=== PATIENT | male | born 1960 | race Two or more races ===

== ENCOUNTER 2019-11-12 10:17 | Inpatient (IN) | payer MEDICAID, OTHER ==
[2019-11-12] VITALS (18 sets, daily range): BP systolic 62–161; BP diastolic 22–93
[~2019-11-12] VITALS: Ht 165.1 cm; Wt 70.8 kg
--- NOTE | 2019-11-12 10:25 | NUR ---
lis60, from street, fever 101.1, BS 68. On room air, breathing evenly and unlabored. connected to the monitor and pulse ox. kept comfortable, will continue to monitor accordingly.
[2019-11-12] MEDS ORDERED: ACETAMINOPHEN ES 500 MG TABLET PO ONE (10:30)
[2019-11-12] MEDS ORDERED: VANCOMYCIN 1 GM in IV D5W 250 ML IV ONE (10:30)
[2019-11-12] MEDS ORDERED: PIPERACILLIN /TAZOBACTAM 3.375 G in IV D5W 50 ML IV ONE (10:30)
[2019-11-12] MEDS ORDERED: IV NS 0.9% 1,000 ML BAG IV ONE (10:30)
[2019-11-12 10:51] LABS: BASOPHILS % (AUTO) 0.5 % (0.0-2.0); HEMATOCRIT 35 % (39-51); HEMOGLOBIN 11.2 g/dL (13.5-17.5); LYMPHOCYTES # (AUTO) 0.2 /CMM (0.8-4.8); LYMPHOCYTES % (AUTO) 2.6 % (20.0-44.0); MEAN CORPUSCULAR HGB CONC 32 g/dl (31.0-36.0); MEAN CORPUSCULAR VOLUME 97 fL (80-96); MONOCYTES # (AUTO) 0.1 /CMM (0.1-1.30); MONOCYTES % (AUTO) 1.5 % (2.0-12.0); NEUTROPHILS # (AUTO) 8.5 /CMM (1.8-8.9); NEUTROPHILS % (AUTO) 94.4 % (43.0-81.0); PLATELET COUNT (AUTO) 147 /CMM (150-450); RED BLOOD CELL COUNT(AUTO) 3.66 MIL/uL (4.5-6.0)
--- NOTE | 2019-11-12 10:52 | NUR ---
MOVE SHEET TURNED IN.
--- NOTE | 2019-11-12 10:55 | NUR ---
MED RECON UNABLE TO UPDATE HOME MEDICATION INFORMATION AT THIS TIME. PATIENT UNABLE TO PROVIDE INFORMATION. [facility] ([phone]) IS CLOSED DURING .
[2019-11-12] MEDS ORDERED: ACETAMINOPHEN ES 500 MG TABLET ONE (10:56)
[2019-11-12 11:03] LABS: CALCIUM, SERUM 7.7 mg/dL (8.5-10.1); CARBON DIOXIDE 25 mmol/L (21-32); CHLORIDE 103 mmol/L (98-107); CREATININE 7.2 mg/dL (0.6-1.3); GLUCOSE 86 mg/dL (74-106); POTASSIUM 5.4 mmol/L (3.5-5.1); SODIUM SERUM 139 mmol/L (136-145); UREA NITROGEN, BLOOD 18 mg/dL (7-18)
--- NOTE | 2019-11-12 11:08 | NUR ---
Patient not producing urine anymore per patient, MD notified and aware.
--- NOTE | 2019-11-12 11:09 | NUR ---
IV initiated and blood drawned. covid 19 swab collected and sent to lab
[2019-11-12 11:10] LABS: ALANINE AMINOTRANSFERASE 7 U/L (12-78); ALBUMIN 2.7 g/dL (3.4-5.0); ALKALINE PHOSPHATASE 103 U/L (46-116); ASPARTATE AMINOTRANSFERASE 33 U/L (15-37); BILIRUBIN,DIRECT 0.2 mg/dL (0.0-0.2); BILIRUBIN,TOTAL 0.8 mg/dL (0.2-1.0); TOTAL PROTEIN, SERUM 8.9 g/dL (6.4-8.2)
--- NOTE | 2019-11-12 11:20 | NUR ---
called [facility] for panel admission
--- NOTE | 2019-11-12 11:37 | NUR ---
room 201
--- NOTE | 2019-11-12 12:00 | NUR ---
report given to Hector GILLESPIE for jaclyn
--- NOTE | 2019-11-12 12:20 | NUR ---
SOFTWARE CLIENT ARCHITECT NOTES RECEIVED PATIENT VIA GURNEY FROM ER. ALERT AND ORIENTED X4. ON O2 TO KEEP SPO2 > 94%. ORIENTED PATIENT TO ROOM, UNIT AND CALL LIGHT. RIGHT UPPER ARM AV SHUNT WITH + BRUIT/THRILL. LEFT UPPER CHEST PACEMAKER NOTED. ON TELE MONITORING SR:77. NOTED BLE EDEMA +2, ELEVATED BLE WITH PILLOWS. PATIENT AMBULATED TO THE BATHROOM AND NOTED WITH UNSTEADY GAIT, ASSISTANCE RENDERED. BED SIDE COMMODE PROVIDED. LEFT AC # 18 SL AND LEFT HAND # 20 SL INTACT AND PATENT. BED IN LOWEST POSITION, LOCKED. BED ALARM ON. CALL LIGHT WITHIN REACH. PATIENT DENIES ANY C/O PAIN NOR DISCOMFORT AT THIS TIME. RESTING COMFORTABLY IN BED. FREQUENT VISUAL CHECK DONE. ABLE TO VERBALIZE NEEDS.
[2019-11-12] MEDS ORDERED: ACETAMINOPHEN 325 MG TABLET PO PRN (12:30)
[2019-11-12] MEDS ORDERED: MAG HYDROX/AL HYDROX/SIMETH 30 ML UDC PO PRN (12:30)
[2019-11-12] MEDS ORDERED: MAGNESIUM HYDROXIDE 30 ML UDC PO PRN (12:30)
[2019-11-12] MEDS ORDERED: SODIUM POLYSTYRENE SULFONATE 15 G/60 ML BOTTLE PO ONE (12:30)
[2019-11-12] MEDS: HYDROCODONE/APAP 5/325MG TABLET PO PRN (13:18)
--- NOTE | 2019-11-12 18:21 | NUR ---
DINING ROOM TABLES SET UP ATTENDANT NOTES NOTED PATIENT BP 90/57. CHECKED IT MULTIPLE TIMES AND MANUALLY SBP STAYS IN 90'S, INFORMED DR. RANDOLPH WITH N.O. FOR NS 500CC BOLUS X1. CARRIED OUT.
[2019-11-12] MEDS ORDERED: IV NS 0.9% 500 ML IV ONE (18:30)
--- NOTE | 2019-11-12 19:15 | NUR ---
PROPERTY MANAGEMENT COORDINATOR NOTES PATIENT BP STILL TRENDING DOWN, CURRENT BP 77/47 DESPITE OF NS BOLUS ADMINISTRATION. PATIENT SLEEPING BUT AROUSABLE AND ABLE TO ANSWER QUESTIONS. DENIES ANY C/O LIGHTHEADEDNESS, N&V, PAIN OR ANY DISCOMFORT. RELAYED TO DR. RANDOLPH WITH ORDER FOR TRANSFER TO ICU AND LEVOPHED TO KEEP MAP >65.
--- NOTE | 2019-11-12 19:15 | NUR ---
CHIEF COUNSEL NOTES REPORT GIVEN TO FAVIAN GILLESPIE ICU.
--- NOTE | 2019-11-12 19:20 | NUR ---
ANDROID SOFTWARE ENGINEER NOTES PATIENT TRANSFERRED TO ICU ROOM 252 VIA ACLS PROTOCOL.
--- NOTE | 2019-11-12 19:45 | NUR ---
CONSULTING SERVICES ASSOCIATE RCD PT FROM [facility] FOR HYPOTENSION DAVIE 62/43; WAITING FOR ORDERS FOR PRESSORS FROM RECEIVING NURSE. PT IS A/O x4 PER PT HE IS SLEEPY BECAUSE HE HAS NOT BEEN ABLE TO SLEEP THE PAST FEW DAYS. PT WITH MARINA AV SHUNT AND HL TO LAC. ORDER RCD FOR PICC LINE D/T PRESSOR. PER OKAY TO USE WRIST FOR BP.
[2019-11-12] MEDS ORDERED: NOREPINEPHRINE 8MG/250ML RTU 250 ML IV ONE (19:48)
--- NOTE | 2019-11-12 20:00 | NUR ---
PAINT LINE OPERATOR PT DECLINES MEPILEX OR WOUND TREATMENTS HE STATES HE GETS VERY ITCHY. CONTINUE TO ENCOURAGE TURN AND REPOSITION.
[2019-11-12] MEDS: NOREPINEPHRINE 8 MG in IV NS 0.9% 242 ML IV PRN (20:21)
[2019-11-12] MEDS: PIPERACILLIN /TAZOBACTAM 2.25 G in IV D5W 50 ML IV SCH (21:20)
[2019-11-12] MEDS: IV NS 0.9% 250 ML IV PRN (21:20)
--- NOTE | 2019-11-12 23:00 | NUR ---
ACID SUPERVISOR PT W/MULTIPLE GREEN MUCOID BM; PER CHART PT RCD KAYEXELATE FOR ELEVATED BP. CONTINUE TO MONITOR.
[2019-11-13] VITALS (95 sets, daily range): BP systolic 42–160; BP diastolic 23–117
[2019-11-13] MEDS: NOREPINEPHRINE 8 MG in IV NS 0.9% 242 ML IV PRN ×2 (02:15→14:19)
[2019-11-13] MEDS: PIPERACILLIN /TAZOBACTAM 2.25 G in IV D5W 50 ML IV SCH ×3 (04:55→20:15)
[2019-11-13 05:07] LABS: BASOPHILS # (AUTO) 0.2 /CMM (0.0-0.2); BASOPHILS % (AUTO) 0.7 % (0.0-2.0); EOSINOPHILS % (AUTO) 0.3 % (0.0-6.0); HEMATOCRIT 36 % (39-51); HEMOGLOBIN 11.2 g/dL (13.5-17.5); LYMPHOCYTES # (AUTO) 0.7 /CMM (0.8-4.8); MEAN CORPUSCULAR HGB CONC 31 g/dl (31.0-36.0); MEAN CORPUSCULAR VOLUME 96 fL (80-96); MONOCYTES # (AUTO) 0.7 /CMM (0.1-1.30); NEUTROPHILS # (AUTO) 21.4 /CMM (1.8-8.9); PLATELET COUNT (AUTO) 115 /CMM (150-450)
--- NOTE | 2019-11-13 05:18 | NUR ---
FLOTATION TENDER HELPER PT NOTED TO BE RESTLESS DURING SHIFT PT C/O GENERALIZED ITCH.
[2019-11-13 05:24] LABS: CALCIUM, SERUM 7.2 mg/dL (8.5-10.1); MAGNESIUM 2.3 mg/dL (1.8-2.4); POTASSIUM 3.8 mmol/L (3.5-5.1)
[2019-11-13 05:42] LABS: CREATININE 7.5 mg/dL (0.6-1.3)
[2019-11-13] MEDS ORDERED: GABA-532 PO (07:20)
[2019-11-13] MEDS ORDERED: METO25TA3 PO (07:20)
[2019-11-13] MEDS ORDERED: ATOR40TA PO (07:20)
[2019-11-13] MEDS ORDERED: OMEP20CA15 PO (07:20)
[2019-11-13] MEDS ORDERED: SEVE800T7 PO (07:20)
[2019-11-13] MEDS ORDERED: MIDO5TAB4 PO (07:20)
[2019-11-13] MEDS ORDERED: DIPH1TAB PO (07:20)
[2019-11-13] MEDS ORDERED: ASPI-1420 PO (07:20)
[2019-11-13] MEDS ORDERED: DIPH25TA22 PO (07:20)
[2019-11-13] MEDS ORDERED: AMIO200T4 PO (07:20)
--- NOTE | 2019-11-13 07:30 | NUR ---
INVENTORY CONTROL ASSOCIATE NOTES RECEIVED PATIENT IN BED, ALERT AND ORIENTED X4. ON O2 TO KEEP SPO2 > 94%. NOT IN ANY DISTRESS, RIGHT UPPER ARM AV SHUNT WITH + BRUIT/THRILL. LEFT UPPER CHEST PACEMAKER NOTED. ON TELE MONITORING SR:64. NOTED BLE EDEMA +2, ELEVATED BLE WITH PILLOWS. BED REST FOR NOW. USES BED SIDE COMMODE PROVIDED. LEFT UPPER ARM PICC LINE AND LEFT HAND # 20 SL INTACT AND PATENT. ONGOING LEVOPHED DRIP AT 0.02 MCG.SEE NURSING FLOWSHEET FOR SKIN ISSUES. BED IN LOWEST POSITION, LOCKED. BED ALARM ON. CALL LIGHT WITHIN REACH. PATIENT DENIES ANY C/O PAIN NOR DISCOMFORT AT THIS TIME. WILL MONITOR
--- NOTE | 2019-11-13 09:30 | NUR ---
RN NOTES DUE MEDS GIVEN
[2019-11-13 09:52] LABS: IRON, SERUM 12 ug/dl (50-175); TOTAL IRON BINDING CAPACITY 114 ug/dl (250-450)
[2019-11-13] MEDS ORDERED: DIPHENOXYLATE HCL/ATROP SULF 1 UDTAB TABLET PO PRN (10:00)
[2019-11-13 10:38] LABS: FERRITIN 937 ng/mL (8-388); HDL CHOLESTEROL 35 mg/dL (40-60); LDL 5 mg/dL (0-99); THYROID STIMULATING HORMONE 6.191 uIU/mL (0.358-3.74); TRIGLYCERIDES 51 mg/dL (30-150)
[2019-11-13] MEDS: SEVELAMER CARBONATE 800 MG TABLET PO SCH ×2 (13:25→17:37)
[2019-11-13 13:32] LABS: CHOLESTEROL < 50 mg/dL (<200)
[2019-11-13] MEDS: VANCOMYCIN 500 MG in IV D5W 100 ML IV PRN (16:33)
[2019-11-13] MEDS: IV NS 0.9% 250 ML IV PRN (16:34)
[2019-11-13] MEDS: GABAPENTIN 100 MG CAPSULE PO SCH (17:37)
--- NOTE | 2019-11-13 18:53 | NUR ---
TROLLEY WORKER NOTES PATIENT RESTING IN BED, ALERT AND ORIENTED X4. ON O2 TO KEEP SPO2 > 94%. NOT IN ANY DISTRESS, RIGHT UPPER ARM AV SHUNT WITH + BRUIT/THRILL. LEFT UPPER CHEST PACEMAKER NOTED. ON TELE MONITORING SR:70s. NOTED BLE EDEMA +2, ELEVATED BLE WITH PILLOWS. LEFT UPPER ARM PICC LINE AND LEFT HAND # 20 SL INTACT AND PATENT. ONGOING LEVOPHED DRIP AT 0.08 MCG. BED IN LOWEST POSITION, LOCKED. BED ALARM ON. CALL LIGHT WITHIN REACH. PATIENT DENIES ANY C/O PAIN NOR DISCOMFORT AT THIS TIME. HD DONE EARLIER, CLEANSING ONLY. PM CARE DONE. ALL NEEDS MET. CONTINUES TO REFUSE WOUND ASSESSMENT AND TREATMENTS. NO OTHER SIGNIFICANT CHANGE NOTED. WILL ENDORSE TO NEXT SHIFT.
--- NOTE | 2019-11-13 19:30 | NUR ---
GAS SYSTEM OPERATOR RCD PT W/DX HYPOTENSION; PT IS A/O x4. NSR ON MONITOR W/OCC A PACING. ON O2 2L NC. PT C/O ABD DISCOMFORT THROUGH OUT DAY; DECLINED NEED FOR ANY MEDICINE AT THIS TIME. PT HAD BM AT THIS TIME; GREEN MUCOID. LEVOPHED AT 0.1 MCG/KG/MIN TO MAINTAIN SBP >90. ZORA PICC LINE LEAKING AND BLEEDING NOTED AT THIS TIME. MULTIPLE SKIN ISSUES HOWEVER PT DECLINES WOUND TREATMENT. CONT TO MONITOR.
--- NOTE | 2019-11-13 20:29 | NUR ---
Met with patient,he is awake and alert. States he lives locally with a friend/roommate in a single level home. He is ambulatory and independent with adl's and driving. Has no DME or homehealth reported.He receives hemodialysis every MWF @ 7am at [facility] [phone]/ [phone]. Current dc plan is to return home. Addendum: 11/13/19 at 2030 by JLUIS LEWIS RN Amended: Links added.
--- NOTE | 2019-11-13 20:30 | NUR ---
Met with patient,he is awake and alert. States he lives locally with a friend/roommate in a single level home. He is ambulatory and independent with adl's and driving. Has no DME or homehealth reported.He receives hemodialysis every MWF @ 7am at [facility] [phone]/ [phone]. Pcp is at [facility]. Current dc plan is to return home. Addendum: 11/13/19 at 2030 by JLUIS LEWIS RN Amended: Links added.
[2019-11-13] MEDS ORDERED: ATORVASTATIN 40 MG TABLET PO SCH (22:00)
--- NOTE | 2019-11-13 22:00 | NUR ---
DESK SERGEANT PT C/O STOMACH DISCOMFORT. WILL ADMINISTER MAALOX.
[2019-11-13] MEDS: ONDANSETRON HCL/PF 4 MG/2 ML VIAL IVP PRN (22:19)
--- NOTE | 2019-11-13 22:20 | NUR ---
DEEP FAT FRY COOK UNABLE TO GIVE PT PO MEDS. PT W/ONE EPISODE OF EMESIS. ADMINISTERED ZOFRAN AT THIS TIME. CONTINUE TO MONITOR.
[2019-11-14] VITALS (89 sets, daily range): BP systolic 30–145; BP diastolic 14–108
[2019-11-14 04:55] LABS: BASOPHILS # (AUTO) 0.1 /CMM (0.0-0.2); BASOPHILS % (AUTO) 0.5 % (0.0-2.0); EOSINOPHILS % (AUTO) 0.9 % (0.0-6.0); HEMATOCRIT 35 % (39-51); HEMOGLOBIN 10.9 g/dL (13.5-17.5); LYMPHOCYTES # (AUTO) 0.6 /CMM (0.8-4.8); LYMPHOCYTES % (AUTO) 3.1 % (20.0-44.0); MEAN CORPUSCULAR HGB CONC 31 g/dl (31.0-36.0); MEAN CORPUSCULAR VOLUME 94 fL (80-96); MONOCYTES # (AUTO) 0.8 /CMM (0.1-1.30); MONOCYTES % (AUTO) 3.8 % (2.0-12.0); NEUTROPHILS # (AUTO) 18.2 /CMM (1.8-8.9); NEUTROPHILS % (AUTO) 91.7 % (43.0-81.0); PLATELET COUNT (AUTO) 117 /CMM (150-450); RED BLOOD CELL COUNT(AUTO) 3.74 MIL/uL (4.5-6.0); WHITE BLOOD COUNT (AUTO) 19.8 K/uL (4.3-11.0)
[2019-11-14] MEDS: PIPERACILLIN /TAZOBACTAM 2.25 G in IV D5W 50 ML IV SCH ×3 (05:00→20:38)
--- NOTE | 2019-11-14 05:00 | NUR ---
CERTIFIED NURSE PRACTITIONER PT CONTINUES TO HAVE MULTIPLE GREEN MUCOID BM. CONTINUE TO MONITOR.
[2019-11-14 05:26] LABS: ALBUMIN 2.1 g/dL (3.4-5.0); CALCIUM, SERUM 8.1 mg/dL (8.5-10.1); CREATININE 6.2 mg/dL (0.6-1.3); MAGNESIUM 2.3 mg/dL (1.8-2.4); PHOSPHORUS 4.5 mg/dL (2.5-4.9); POTASSIUM 3.8 mmol/L (3.5-5.1); TOTAL PROTEIN, SERUM 7.6 g/dL (6.4-8.2)
--- NOTE | 2019-11-14 06:44 | NUR ---
TRASH MAN BLOOD GLUCOSE 31 RECHECKED 49; ORANGE JUICE GIVEN. WILL RECHECK. JOINERY FACTORY WORKER NOTIFIED.
[2019-11-14] MEDS ORDERED: OMEPRAZOLE 20 MG CAPSULE.DR PO SCH (07:30)
--- NOTE | 2019-11-14 07:50 | NUR ---
ICU/RN PT IS IN THE BED AWAKE,ALERT ORIENTED. ON 2 L N/C .SAT O2-97%.ON LEVOPHED DRIP.LEFT UPPER ARM PICC LINE.ANURIC ON HD.RIGHT UPPER ARM FISTULA.MULTIPLY SKIN SCABS NOTED ALL OVER THE BODY.AFEBRILE.NO PAIN REPORTED AT THIS TIME.LABS REVIEW.
[2019-11-14] MEDS: PANTOPRAZOLE 40 MG TABLET.DR PO SCH (08:18)
[2019-11-14] MEDS: ASPIRIN EC 81 MG TABLET.DR PO SCH (08:18)
[2019-11-14] MEDS: SEVELAMER CARBONATE 800 MG TABLET PO SCH ×3 (08:19→17:12)
[2019-11-14] MEDS: GABAPENTIN 100 MG CAPSULE PO SCH ×2 (08:19→17:04)
[2019-11-14] MEDS: AMIODARONE HCL 200 MG TABLET PO SCH (08:19)
[2019-11-14] MEDS: Z GUARD REMEDY 2 OZ OINT TP PRN (08:24)
--- NOTE | 2019-11-14 08:24 | NUR ---
WOUND CARE CONSULT: PT PRESENTS WITH MULTIPLE SKIN ISSUES INCLUDING SKIN CONDITION TO UPPER BODY WITH DISCOLORATION AND SCABS, SACRAL STAGE 3 ULCER, DRY ESCHAR TO RT HAND AND DRY ULCERS WITH CALLUS TO BILATERAL PLANTAR FEET, ALL PRESENT ON ADMISSION. RN TO DISCUSS SKIN CONDITION OF UPPER BODY WITH MD TODAY. RECOMMEND SURGICAL CONSULT FOR RT HAND AND SACRAL WOUNDS. DR FELIBERTO ABBASI NOTIFIED OF CONSULT REQUEST. DR CASTILLO NOTIFIED OF DPM CONSULT REQUEST FOR FOOT WOUNDS. RECOMMENDATIONS MADE FOR WOUND CARE AND SKIN PROTECTION. DISCUSSED WITH NURSING STAFF. DEFER TO SURGICAL TEAM FOR RT HAND ESCHAR WOUND TREATMENT. DEFER TO DPM FOR FOOT WOUNDS. MD IN AGREEMENT WITH PLAN OF CARE. PT IS ON [place]WTON ISOFLEX LOW AIRLOSS BED. PT INCONTINENT OF STOOL. Addendum: 11/14/19 at 0828 by HUMAIRA ISAAC WNDNU Amended: Links added.
[2019-11-14] MEDS ORDERED: HYDROGEL DRESSING 90 GM TUBE TP PRN (08:30)
--- NOTE | 2019-11-14 09:00 | NUR ---
ICU/RN DUE MEDS ARE GIVEN ORDERED.
--- NOTE | 2019-11-14 11:00 | NUR ---
ICU/RN DR GREGORY SEEN THE PT .RIGHT LUNG THORACENTESIS ORDERED. AND DONE.PT TOLERATED PROCEDURE WELL.NO S/S OF BLEEDING NOTED.310 ML OUTPUT SEND TO THE LAB.
[2019-11-14] MEDS: HYDROGEL DRESSING 90 GM TUBE TP SCH (11:38)
[2019-11-14] MEDS: HYDROCODONE/APAP 5/325MG TABLET PO PRN ×2 (11:41→23:02)
[2019-11-14] MEDS: IV NS 0.9% 250 ML IV PRN (17:03)
[2019-11-14] MEDS: NOREPINEPHRINE 8 MG in IV NS 0.9% 242 ML IV PRN (17:04)
[2019-11-14] MEDS ORDERED: AZTREONAM 2 G in IV NS 0.9% 100 ML IV SCH (17:30)
[2019-11-14] MEDS ORDERED: AZTREONAM 2 G in IV NS 0.9% 100 ML IV ONE (18:28)
[2019-11-14] MEDS ORDERED: DEXTROSE 50%-WATER 50 ML DISP.SYRIN IV PRN (19:00)
--- NOTE | 2019-11-14 19:10 | NUR ---
RN OPENING NOTES RECEIVED PT ON BED AWAKE A/0 X4 ON O2 2L SPO2 98% NO SIGN AND SYMPTOMS OF RESPIRATORY DISTRESS, BEDSIDE MONITOR READS SINUS RHYTHM A PACING, ON LEVOPHED 0.05 MCG/KG/MIN VIA ZORA PICC LINE INFUSING WELL, PT IS S/P THORACENTESIS ON RIGHT CHEST WITH OUTPUT OF 310 ML/ SITE IS CLEAN AND NO BLEEDING NOTED, SAFETY MEASURE MAINTAINED BED ON LOWEST POSITION AND LOCKED CALL LIGHT WITHIN REACH WILL CONT TO MONITOR
--- NOTE | 2019-11-14 21:30 | NUR ---
RN NOTES AZTREONAM 2GM WAS GIVEN LATE BECAUSE ORDER WAS ONLY MADE @ 3750
[2019-11-14] MEDS: BLOOD SUGAR DIAGNOSTIC 1 EACH STRIP IN SCH (21:33)
[2019-11-14] MEDS: INSULIN REGULAR, HUMAN 100 UNIT/ML 3 ML VIAL SQ PRN (21:34)
[2019-11-15] VITALS (91 sets, daily range): BP systolic 78–135; BP diastolic 19–74
[2019-11-15] MEDS: PIPERACILLIN /TAZOBACTAM 2.25 G in IV D5W 50 ML IV SCH ×3 (04:31→21:44)
[2019-11-15] MEDS: Z GUARD REMEDY 2 OZ OINT TP PRN (04:32)
[2019-11-15 04:46] LABS: BASOPHILS # (AUTO) 0.1 /CMM (0.0-0.2); BASOPHILS % (AUTO) 0.4 % (0.0-2.0); EOSINOPHILS % (AUTO) 2.7 % (0.0-6.0); HEMATOCRIT 34 % (39-51); HEMOGLOBIN 10.5 g/dL (13.5-17.5); LYMPHOCYTES # (AUTO) 0.6 /CMM (0.8-4.8); LYMPHOCYTES % (AUTO) 4.5 % (20.0-44.0); MEAN CORPUSCULAR HGB CONC 31 g/dl (31.0-36.0); MEAN CORPUSCULAR VOLUME 94 fL (80-96); MONOCYTES # (AUTO) 0.5 /CMM (0.1-1.30); MONOCYTES % (AUTO) 3.3 % (2.0-12.0); NEUTROPHILS # (AUTO) 12.8 /CMM (1.8-8.9); NEUTROPHILS % (AUTO) 89.1 % (43.0-81.0); PLATELET COUNT (AUTO) 108 /CMM (150-450); RED BLOOD CELL COUNT(AUTO) 3.58 MIL/uL (4.5-6.0); WHITE BLOOD COUNT (AUTO) 14.3 K/uL (4.3-11.0)
[2019-11-15 05:36] LABS: CALCIUM, SERUM 7.7 mg/dL (8.5-10.1); CREATININE 6.9 mg/dL (0.6-1.3)
--- NOTE | 2019-11-15 06:52 | NUR ---
RN CLOSING NOTES PT ON BED ASLEEP ON O2 VIA NC @ 2L TOLERATING WELL WITH SPO2 98%, BEDSIDE MONITOR READS SINUS RHYTHM 70S WITH A PACING, NO SIGNIFICANT CHANGES ON CONDITION NOTED, STILL ON LEVOPHED 0.05 MCG/KG/MIN INFUSING WELL VIA ZORA PICC, ALL NEEDS ATTENDED WOUND TREATMENT DONE ORDERED, SAFETY MEASURE MAINTAIN, BED ON LOWEST POSITION AND LOCKED CALL LIGHT WITHIN REACH WILL ENDORSED TO AM SHIFT NURSE
--- NOTE | 2019-11-15 07:20 | NUR ---
RN INITIAL NOTES RECEIVED PT AWAKE, A/OX4. ON 02 VIA NC AT 2LPM. NO RESPIRATORY DISTRESS NOTED. NO SOB NOTED. DENIES ANY PAIN. ZORA PICC IN PLACE. ON LEVO AT 0.05MCG/KG/MIN. WILL TITRATE ACCORDINGLY. MARINA AV FISTULA NOTED. BRUIT AND THRILL PRESENT. PT COMFORTABLE. CALL LIGHT WITHIN REACH. WILL MONITOR.
[2019-11-15 08:10] LABS: PTH, INTACT 177 pg/mL (15-65)
[2019-11-15] MEDS: AMIODARONE HCL 200 MG TABLET PO SCH (08:12)
[2019-11-15] MEDS: SEVELAMER CARBONATE 800 MG TABLET PO SCH ×3 (08:12→21:45)
[2019-11-15] MEDS: PANTOPRAZOLE 40 MG TABLET.DR PO SCH (08:12)
[2019-11-15] MEDS: HYDROCORTISONE SOD SUCCINATE 100 MG/2 ML VIAL IV SCH ×3 (08:12→21:45)
[2019-11-15] MEDS: BLOOD SUGAR DIAGNOSTIC 1 EACH STRIP IN SCH ×4 (08:13→22:02)
[2019-11-15] MEDS: HYDROGEL DRESSING 90 GM TUBE TP SCH (08:13)
[2019-11-15] MEDS: ASPIRIN EC 81 MG TABLET.DR PO SCH (08:13)
[2019-11-15] MEDS: GABAPENTIN 100 MG CAPSULE PO SCH ×2 (08:13→21:45)
[2019-11-15] MEDS: AZTREONAM IV SCH ×2 (09:39→21:44)
[2019-11-15] MEDS: NS 0.9% IV SCH ×2 (09:39→21:44)
[2019-11-15] MEDS: APIXABAN 2.5 MG TABLET PO SCH ×2 (10:42→21:50)
[2019-11-15] MEDS ORDERED: MINERAL OIL/PETROLATUM,WHITE 120 GM JAR TP PRN (11:00)
[2019-11-15 11:11] LABS: *SPE A/G RATIO 0.6 (0.7-1.7); *SPE ALBUMIN 2.7 g/dL (2.9-4.4); *SPE ALPHA-1-GLOBULIN 0.3 g/dL (0.0-0.4); *SPE ALPHA-2-GLOBULIN 0.5 g/dL (0.4-1.0); *SPE BETA GLOBULIN 0.7 g/dL (0.7-1.3); *SPE GLOBULIN, TOTAL 4.3 g/dL (2.2-3.9); *SPE M-SPIKE Not Observed g/dL (Not Observed); *SPEGAMMA GLOBULIN 2.8 g/dL (0.4-1.8)
[2019-11-15] MEDS: INSULIN REGULAR, HUMAN 100 UNIT/ML 3 ML VIAL SQ PRN (11:51)
--- NOTE | 2019-11-15 13:00 | NUR ---
RN NOTES SEEN BY KOMAL RASCON NP. AWARE OF PT'S CURRENT STATUS, LAB VALUES AND IMAGING RESULT. SCALE MODEL MAKER SPOKE WITH DR DE LA TORRE (RADIOLOGIST) REGARDING CT CHEST RESULT. NO ORDER MADE. PT FOR VASCULAR CONSULT WITH DR GAMBINO. WILL CLOSELY MONITOR
[2019-11-15] MEDS: ENSURE ENLIVE CHOC 237 ML CAN PO SCH (17:00)
[2019-11-15] MEDS: NOREPINEPHRINE 8 MG in IV NS 0.9% 242 ML IV PRN (17:40)
--- NOTE | 2019-11-15 18:00 | NUR ---
RN NOTES MEDICATIONS DUE AT 1700 AND 1800 UNABLE TO GIVE. DIALYSIS ONGOING.
--- NOTE | 2019-11-15 18:36 | NUR ---
RN CLOSING NOTES PT REMAINS STABLE. NO RESPIRATORY DISTRESS NOTED. DENIES ANY PAIN. ON LEVO AT 0.01MCG/KG/MIN. DIALYSIS ONGOING. TX PROVIDED ORDERED. KEPT CLEAN AND DRY. ASSISTED ON REPOSITIONING . WILL ENDORSE FOR CONTINUITY OF CARE
--- NOTE | 2019-11-15 20:00 | NUR ---
SOFTWARE PACKAGER. INITIAL ASSESSMENT. RECEIVED THE PT REST ON THE BED. AWAKE, ALERT, FOLLOW COMMANDS. LETHARGIC. HD GOING ON. DENTAL SECRETARY SHOWING A PACING. PT IS ROOM AIR. SAT 94%. N O ACUTE DISTRESS NOTED. IV LT UPPER ARM PICC LINE. LEVOPHED. 0.01 MCG/KG/MIN,. HOB ELEVATED. RT UPPER ARM AV FISTULA. BRUIT AND THRILL PRESENT. WILL CONTINUE TO MONITOR.
--- NOTE | 2019-11-15 20:14 | NUR ---
agricultural scientist. hd done. fluid not removed
--- NOTE | 2019-11-15 21:27 | NUR ---
agriculture professor. s/p hd vancomycin given. hd done. no fluids removed, spoke with pharmacy. ordered give the dose
[2019-11-15] MEDS: VANCOMYCIN 500 MG in IV D5W 100 ML IV PRN (21:44)
[2019-11-15] MEDS: HYDROCODONE/APAP 5/325MG TABLET PO PRN (22:01)
--- NOTE | 2019-11-15 23:00 | NUR ---
BLADDER CLEANER. PT C/O RT UPPER ARM BELOW AV FISTULA SITE SWELLING. HAND ELEVATED. WILL CONTINUE TO MONITOR
[2019-11-16] VITALS (91 sets, daily range): BP systolic 68–123; BP diastolic 33–92
--- NOTE | 2019-11-16 01:00 | NUR ---
DRUG AND ALCOHOL COUNSELOR. PT C/O SOB. OXYGEN 2L VIA NASAL CANNULA STARTED. WILL CONTINUE TO MONITOR
--- NOTE | 2019-11-16 03:00 | NUR ---
MANAGER PHP. AFTER STARTED O2 NASAL CANNULA , NO COMPLAINT SHORT OF BREATH
[2019-11-16] MEDS: NOREPINEPHRINE 8 MG in IV NS 0.9% 242 ML IV PRN (05:07)
--- NOTE | 2019-11-16 05:16 | NUR ---
DOOR PANELER. AM CARE, ORAL CARE, BED BATH GIVEN. LINEN CHANGED. REMAINING SAME OXYGEN TOLEARTEDW ELL. SAT 98%. NO ACUTE DISTRESS NOTED. ADMINISTRATIVE INTERN SHOWING A PACING. AFEBRILE. WILL CONTINUE TO MONITOR VITALS.
[2019-11-16] MEDS: HYDROCORTISONE SOD SUCCINATE 100 MG/2 ML VIAL IV SCH ×3 (06:07→20:55)
[2019-11-16] MEDS: PIPERACILLIN /TAZOBACTAM 2.25 G in IV D5W 50 ML IV SCH ×2 (06:08→11:53)
--- NOTE | 2019-11-16 06:53 | NUR ---
agricultural engineering technologist. oxygen 2l via nasal cannula tolerated well. sat 98%. no acute distress noted hob elevated. afebrile . levophed 0.05 mcg/kg/min. will continue to monitor vitals
[2019-11-16] MEDS: APIXABAN 2.5 MG TABLET PO SCH ×2 (08:36→17:06)
[2019-11-16] MEDS: INSULIN REGULAR, HUMAN 100 UNIT/ML 3 ML VIAL SQ PRN ×4 (08:38→22:06)
[2019-11-16] MEDS: PANTOPRAZOLE 40 MG TABLET.DR PO SCH (08:39)
[2019-11-16] MEDS: SEVELAMER CARBONATE 800 MG TABLET PO SCH ×3 (08:39→17:02)
[2019-11-16] MEDS: ASPIRIN EC 81 MG TABLET.DR PO SCH (08:39)
[2019-11-16] MEDS: BLOOD SUGAR DIAGNOSTIC 1 EACH STRIP IN SCH ×4 (08:39→22:02)
[2019-11-16] MEDS: GABAPENTIN 100 MG CAPSULE PO SCH ×2 (08:39→17:02)
[2019-11-16] MEDS: AMIODARONE HCL 200 MG TABLET PO SCH (08:39)
[2019-11-16] MEDS: HYDROGEL DRESSING 90 GM TUBE TP SCH (08:41)
[2019-11-16] MEDS: ENSURE ENLIVE CHOC 237 ML CAN PO SCH (08:41)
[2019-11-16] MEDS: NS 0.9% IV SCH (09:27)
[2019-11-16] MEDS: AZTREONAM IV SCH (09:27)
[2019-11-16] MEDS: SILVER SULFADIAZINE CREAM 25 GM TUBE TP SCH (11:29)
[2019-11-16] MEDS: NEPRO VAN 237 ML CAN PO PRN ×2 (11:54→17:13)
[2019-11-16] MEDS: MENTHOL/CETYLPYRD (CEPACOL) 1 LOZ LOZENGE PO PRN ×2 (14:11→17:02)
[2019-11-16] MEDS: CEFTRIAXONE 1 G in IV D5W 50 ML IV SCH (14:41)
[2019-11-16] MEDS: METRONIDAZOLE 500MG/ NS 100ML 500 MG in PREMIX 1 EA IV SCH ×2 (15:11→20:55)
--- NOTE | 2019-11-16 19:30 | NUR ---
END OF SHIFT NOTE: PT HAD AN UNEVENTFUL SHIFT. LEVOPHED GTT TITRATED DOWN TO 0.02 MCG/KG/MIN PER MD ORDERS. PT CHECKED ON HOURLY AND PRN BY NURSING STAFF.
--- NOTE | 2019-11-16 20:00 | NUR ---
Received patient awake alert and oriented x4.Respiration even and unlabored with O2 at 2L NC saturation 98%.Afebrile.A-paced.Patient on levophed gtt at 0.02 mcg for BP support and will titrate to keep MAP >65.Patient anuric on HD with MARINA AVF positive bruit and thrill.ZORA PICC LINE site intact. Denies pain or any discomfort at this time.
[2019-11-16] MEDS: HYDROCODONE/APAP 5/325MG TABLET PO PRN (22:10)
--- NOTE | 2019-11-16 23:00 | NUR ---
Patient medicated for pain to left foot.Verbalized relief.
[2019-11-17] VITALS (95 sets, daily range): BP systolic 65–139; BP diastolic 31–88
[2019-11-17] MEDS: IV NS 0.9% 250 ML IV PRN (03:30)
[2019-11-17] MEDS: NOREPINEPHRINE 8 MG in IV NS 0.9% 242 ML IV PRN (03:37)
[2019-11-17] MEDS: METRONIDAZOLE 500MG/ NS 100ML 500 MG in PREMIX 1 EA IV SCH ×3 (05:04→20:48)
[2019-11-17] MEDS: HYDROCORTISONE SOD SUCCINATE 100 MG/2 ML VIAL IV SCH ×3 (05:04→20:49)
--- NOTE | 2019-11-17 06:00 | NUR ---
Hygienic measures done.No significant change noted during the shift.All due medications administered. Patient for Right Chest Pigtain Addendum: 11/17/19 at 0637 by JLUIS SCHWARTZ RN Patient for Right Pigtail Drainage of Pleural Effusion with IR on Wednesday.Needs consent to be sign. And to hold Eliquis wednesday.NPO post MN wednesday.Will endorse to day shift for continuity of care.
--- NOTE | 2019-11-17 07:30 | NUR ---
ICU/RN PT IS RESTING IN THE BED .ON 2 L N/C SAT O2-96%.ON LEVOPHED DRIP.LEFT UPPER ARM PICC LINE. ANURIC ON HD . RIGHT UPPER ARM IV FISTULA.BILATERAL FEET WOUNDS COVERED WITH DRESSING.REDNESS ON LINDA AREA NOTED.AFEBRILE.NO PAIN REPORTED AT THIS TIME.
[2019-11-17] MEDS: BLOOD SUGAR DIAGNOSTIC 1 EACH STRIP IN SCH ×4 (08:10→21:48)
[2019-11-17] MEDS: ASPIRIN EC 81 MG TABLET.DR PO SCH (08:11)
[2019-11-17] MEDS: PANTOPRAZOLE 40 MG TABLET.DR PO SCH (08:11)
[2019-11-17] MEDS: SEVELAMER CARBONATE 800 MG TABLET PO SCH ×3 (08:11→17:27)
[2019-11-17] MEDS: GABAPENTIN 100 MG CAPSULE PO SCH ×2 (08:11→17:27)
[2019-11-17] MEDS: AMIODARONE HCL 200 MG TABLET PO SCH (08:11)
[2019-11-17] MEDS: SILVER SULFADIAZINE CREAM 25 GM TUBE TP SCH (08:12)
[2019-11-17] MEDS: APIXABAN 2.5 MG TABLET PO SCH ×2 (08:12→17:30)
[2019-11-17] MEDS: Z GUARD REMEDY 2 OZ OINT TP PRN (08:13)
[2019-11-17] MEDS: HYDROGEL DRESSING 90 GM TUBE TP SCH (08:13)
[2019-11-17] MEDS: INSULIN REGULAR, HUMAN 100 UNIT/ML 3 ML VIAL SQ PRN ×4 (08:50→21:47)
--- NOTE | 2019-11-17 09:00 | NUR ---
ICU/RN DUE MEDS ARE GIVEN ORDERED.AM CARE PROVIDED.PT EATS 100% FROM HIS MEAL TRAY.
[2019-11-17] MEDS: HYDROCODONE/APAP 5/325MG TABLET PO PRN (09:52)
--- NOTE | 2019-11-17 09:54 | NUR ---
ICU/RN PT C/O OF PAIN 7-09/17.NORCO 1 TAB PO GIVEN ORDERED.CONTINUE MONITORING.
[2019-11-17 11:35] LABS: BASOPHILS % (AUTO) 0.4 % (0.0-2.0); HEMATOCRIT 35 % (39-51); HEMOGLOBIN 10.9 g/dL (13.5-17.5); LYMPHOCYTES # (AUTO) 0.3 /CMM (0.8-4.8); LYMPHOCYTES % (AUTO) 3.1 % (20.0-44.0); MEAN CORPUSCULAR HGB CONC 31 g/dl (31.0-36.0); MEAN CORPUSCULAR VOLUME 95 fL (80-96); MONOCYTES # (AUTO) 0.2 /CMM (0.1-1.30); NEUTROPHILS # (AUTO) 10.4 /CMM (1.8-8.9); NEUTROPHILS % (AUTO) 94.5 % (43.0-81.0); PLATELET COUNT (AUTO) 142 /CMM (150-450); RED BLOOD CELL COUNT(AUTO) 3.66 MIL/uL (4.5-6.0)
[2019-11-17 11:55] LABS: CALCIUM, SERUM 8.1 mg/dL (8.5-10.1); CREATININE 6.5 mg/dL (0.6-1.3); POTASSIUM 4.4 mmol/L (3.5-5.1)
[2019-11-17] MEDS: CEFTRIAXONE 1 G in IV D5W 50 ML IV SCH (15:35)
--- NOTE | 2019-11-17 16:00 | NUR ---
ICU/RN HD IS OVER 1 L OUTPUT.PT TOLERATED PROCEDURE WELL.PM CARE PROVIDED.WOUND DRESSING DONE ORDERED.V/S STABLE,AFEBRILE. NO PAIN REPORTED.
--- NOTE | 2019-11-17 18:49 | NUR ---
ICU/RN PT IS STILL ON LEVOPHED DRIP.BS-187.COVERED WITH 3 UNITS OF REGULAR INSULIN. PT EATS 75% FROM HIS MEAL TRAY.NO PAIN REPORTED AT THIS TIME.CONTINUE MONITORING.
--- NOTE | 2019-11-17 19:30 | NUR ---
ICU/ORACLE SCM CONSULTANT RECEIVED REPORT FROM DAY NURSE. SEE FLOWSHEET FOR ASSESSMENT, ALONG WITH SKIN ISSUES WHICH ARE ADDRESSED AND THE INTERVENTIONS TO EACH. PT ALERT X4. PT IS ON 2 LITERS N/C TOLERATING THIS WELL WITH SATURATION AT 100%. PT ASST WITH TURNING AND REPOSITIONING SELF FOR COMFORT AND CARE. WILL CONTINUE TO MONITOR THIS PT, NO ACUTE DISTRESS SEEN.
--- NOTE | 2019-11-17 21:45 | NUR ---
ICU/BATH SOLUTION MAKER PT WAS GIVEN PARTIAL PM CARE. PT TOLERATED THIS WELL. PT REMAINS ON 2 LITERS N/C WITH SATURATION AT 100%. WILL CONTINUE TO MONITOR THIS PT. NO ACUTE DISTRESS SEEN AT THIS TIME. CALL LIGHT WITHIN REACH.
--- NOTE | 2019-11-17 22:30 | NUR ---
ICU/MAIL ORDER CLERK HS BLOOD SUGAR WAS DONE, WHICH WAS 175. THIS WAS COVERED WITH 3 UNITS REGULAR INSULIN. WILL CONTINUE TO MONITOR THIS PT'S SUGAR WAS ORDERED BY MD AND HOSPITAL PROTOCOL. CALL LIGHT WITHIN REACH.
[2019-11-18] VITALS (50 sets, daily range): BP systolic 76–122; BP diastolic 45–71
--- NOTE | 2019-11-18 01:30 | NUR ---
ICU/GLAZIER SUPERVISOR BLOOD PRESSURE IS STABLE AT 120'S, LEVO IS ON HOLD BY CHARGE NURSE. WILL CONTINUE MONITOR THIS PT'S BLOOD PRESSURE.
[2019-11-18] MEDS: HYDROCORTISONE SOD SUCCINATE 100 MG/2 ML VIAL IV SCH ×3 (05:09→21:04)
[2019-11-18] MEDS: METRONIDAZOLE 500MG/ NS 100ML 500 MG in PREMIX 1 EA IV SCH ×3 (05:09→21:04)
--- NOTE | 2019-11-18 05:15 | NUR ---
ICU/CHILD CARE NURSE PT WAS GIVEN PARTIAL PM CARE. PT TOLERATED THIS WELL. PT REMAINS ON 2 LITERS N/C WITH SATURATION AT 100%. WILL CONTINUE TO MONITOR THIS PT. NO ACUTE DISTRESS SEEN AT THIS TIME. CALL LIGHT WITHIN REACH.
[2019-11-18] MEDS: IV NS 0.9% 250 ML IV PRN (07:07)
--- NOTE | 2019-11-18 07:15 | NUR ---
ICU/MONTESSORI PRESCHOOL TEACHER PT REMAINS WITHOUT LEVO, BLOOD PRESSURE IS STABLE. REPORT GIVEN TO DAY NURSE.
[2019-11-18] MEDS: BLOOD SUGAR DIAGNOSTIC 1 EACH STRIP IN SCH ×4 (07:48→21:04)
[2019-11-18] MEDS: AMIODARONE HCL 200 MG TABLET PO SCH (08:12)
[2019-11-18] MEDS: PANTOPRAZOLE 40 MG TABLET.DR PO SCH (08:13)
[2019-11-18] MEDS: ASPIRIN EC 81 MG TABLET.DR PO SCH (08:13)
[2019-11-18] MEDS: HYDROGEL DRESSING 90 GM TUBE TP SCH (08:13)
[2019-11-18] MEDS: SEVELAMER CARBONATE 800 MG TABLET PO SCH ×3 (08:13→17:16)
[2019-11-18] MEDS: GABAPENTIN 100 MG CAPSULE PO SCH ×2 (08:13→16:48)
[2019-11-18] MEDS: SILVER SULFADIAZINE CREAM 25 GM TUBE TP SCH (08:14)
--- NOTE | 2019-11-18 09:00 | NUR ---
ICU/RN PT IS IN THE BED .ON 2L N/C ,SAT O2-98%.OFF LEVOPHED AT THIS TIME.V/S STABLE.AFEBRILE.NO PAIN REPORTED.DUE MEDS ARE GIVEN ORDERED.PT EATS 100% FROM HIS MEAL TRAY.LABS REVIEW.CONTINUE MONITORING.
[2019-11-18] MEDS: INSULIN REGULAR, HUMAN 100 UNIT/ML 3 ML VIAL SQ PRN ×4 (09:13→21:18)
[2019-11-18 09:34] LABS: BASOPHILS % (AUTO) 0.2 % (0.0-2.0); HEMATOCRIT 37 % (39-51); HEMOGLOBIN 11.6 g/dL (13.5-17.5); LYMPHOCYTES # (AUTO) 0.4 /CMM (0.8-4.8); LYMPHOCYTES % (AUTO) 3.8 % (20.0-44.0); MEAN CORPUSCULAR HGB CONC 32 g/dl (31.0-36.0); MEAN CORPUSCULAR VOLUME 95 fL (80-96); MONOCYTES # (AUTO) 0.2 /CMM (0.1-1.30); MONOCYTES % (AUTO) 2.4 % (2.0-12.0); NEUTROPHILS # (AUTO) 8.8 /CMM (1.8-8.9); NEUTROPHILS % (AUTO) 93.6 % (43.0-81.0); PLATELET COUNT (AUTO) 148 /CMM (150-450); RED BLOOD CELL COUNT(AUTO) 3.86 MIL/uL (4.5-6.0); WHITE BLOOD COUNT (AUTO) 9.4 K/uL (4.3-11.0)
[2019-11-18 10:11] LABS: CREATININE 5.7 mg/dL (0.6-1.3); POTASSIUM 4.1 mmol/L (3.5-5.1)
[2019-11-18] MEDS: CEFTRIAXONE 1 G in IV D5W 50 ML IV SCH (13:29)
[2019-11-18] MEDS: HYDROCODONE/APAP 5/325MG TABLET PO PRN (22:51)
[2019-11-19] VITALS (19 sets, daily range): BP systolic 84–110; BP diastolic 37–66
[2019-11-19] MEDS: HYDROCODONE/APAP 5/325MG TABLET PO PRN ×2 (02:59→14:54)
[2019-11-19] MEDS: IV NS 0.9% 250 ML IV PRN (03:17)
[2019-11-19 04:48] LABS: BASOPHILS % (AUTO) 0.2 % (0.0-2.0); HEMATOCRIT 32 % (39-51); HEMOGLOBIN 10.2 g/dL (13.5-17.5); LYMPHOCYTES # (AUTO) 0.3 /CMM (0.8-4.8); LYMPHOCYTES % (AUTO) 2.9 % (20.0-44.0); MEAN CORPUSCULAR HGB CONC 32 g/dl (31.0-36.0); MEAN CORPUSCULAR VOLUME 95 fL (80-96); MONOCYTES # (AUTO) 0.3 /CMM (0.1-1.30); MONOCYTES % (AUTO) 2.8 % (2.0-12.0); NEUTROPHILS # (AUTO) 9.4 /CMM (1.8-8.9); NEUTROPHILS % (AUTO) 94.1 % (43.0-81.0); PLATELET COUNT (AUTO) 151 /CMM (150-450); RED BLOOD CELL COUNT(AUTO) 3.39 MIL/uL (4.5-6.0)
[2019-11-19 05:00] LABS: CALCIUM, SERUM 8.1 mg/dL (8.5-10.1); CREATININE 6.3 mg/dL (0.6-1.3); POTASSIUM 4.4 mmol/L (3.5-5.1)
[2019-11-19] MEDS: HYDROCORTISONE SOD SUCCINATE 100 MG/2 ML VIAL IV SCH ×3 (05:35→21:14)
[2019-11-19] MEDS: METRONIDAZOLE 500MG/ NS 100ML 500 MG in PREMIX 1 EA IV SCH ×3 (05:35→21:14)
[2019-11-19] MEDS: SEVELAMER CARBONATE 800 MG TABLET PO SCH ×3 (07:33→17:03)
[2019-11-19] MEDS: PANTOPRAZOLE 40 MG TABLET.DR PO SCH (07:33)
[2019-11-19] MEDS: BLOOD SUGAR DIAGNOSTIC 1 EACH STRIP IN SCH ×4 (07:52→21:45)
--- NOTE | 2019-11-19 07:57 | NUR ---
RN OPENING NOTES RECEIVED PATIENT RESTING IN BED COMFORTABLY AT THIS TIME, NO S.SX OF DISTRESS PRESENT. PT IS AOX4, VERBAL, AND AMBULATORY WITH ASSIST. HE IS ON 2L OF O2 VIA NC, TOLERATING WELL, NO SOB OR RESP DISTRESS. TELE MONITOR SHOWING A PACING. WOUNDS PRESENTS ON BILATERAL FEET AND SACRAL, WILL ADDRESS PER WOUND CARE PLAN. ZORA PICC AND R FISTULA ARE PATENT AND INTACT. SAFETY MEASURES HAVE BEEN IMPLEMENTED, CALL LIGHT IS WITHIN REACH, BED IS IN LOWEST AND LOCKED POSITION, SIDE RAILS UP X2, WILL CONTINUE TO MONITOR FOR ANY CHANGES.
[2019-11-19] MEDS: SILVER SULFADIAZINE CREAM 25 GM TUBE TP SCH (08:19)
[2019-11-19] MEDS: HYDROGEL DRESSING 90 GM TUBE TP SCH (08:20)
[2019-11-19] MEDS: ASPIRIN EC 81 MG TABLET.DR PO SCH (08:21)
[2019-11-19] MEDS: GABAPENTIN 100 MG CAPSULE PO SCH ×2 (08:21→16:46)
[2019-11-19] MEDS: INSULIN REGULAR, HUMAN 100 UNIT/ML 3 ML VIAL SQ PRN ×4 (08:22→21:46)
[2019-11-19] MEDS: AMIODARONE HCL 200 MG TABLET PO SCH (08:23)
[2019-11-19] MEDS: CEFTRIAXONE 1 G in IV D5W 50 ML IV SCH (13:54)
[2019-11-19] MEDS: MIDODRINE HCL (5MG) 5 MG TABLET PO PRN (14:54)
--- NOTE | 2019-11-19 14:54 | NUR ---
pt has MAP of 65, administered PRN dose of midodrine for blood pressure support. pt also complaining of left leg pain at 9/10, administered PRN norco, will continue to monitor for any changes.
--- NOTE | 2019-11-19 16:40 | NUR ---
pt has been transferred to room 103, handoff report given to Ashley GILLESPIE for jaclyn.
--- NOTE | 2019-11-19 16:57 | NUR ---
UNIVERSITY INTERN NOTE RECEIVED PATIENT FROM ICU ALERT ORIENTEDX4 ,PLACED ON TELE MONITOR A PACING , LT ARM PICC LINE IN PLACE AND FLUSHED WELL , BED IN LOWEST AND LOCKED POSITION ,ALL NEEDS ATTENDED VS TAKEN, WILL CONT TO MONITOR , RT ARM AV FISTULA WITH BRUIT AND THRILL SOUND ,ON O2 2L NS NO SOB NOTED ,WILL CONT TO MONITOR
--- NOTE | 2019-11-19 18:15 | NUR ---
NURSE ORTHOPAEDIC NOTE HAVING DINNER , OLMAN TO EAT SELF NOT IN DISTRESS, CALL LIGHT WITHIN REACH , NO SOB NOTED WILL CONT TO MONITOR
--- NOTE | 2019-11-19 19:30 | NUR ---
SOURCE WATER PROTECTION SPECIALIST NOTE, RECEIVED PATIENT IN BED AT THIS TIME, A/O X4, SWEDISH AND URUGUAYAN SPEAKING, ON O2 2L NS NO SOB NOTED, BREATHING EVEN AND UNLABORED, TELE MONITOR A PACING , LT ARM PICC LINE IN PLACE AND FLUSHED WELL, RT ARM AV FISTULA WITH BRUIT AND THRILL SOUND IN RIGHT ARM, INTACT, WILL BE NPO AFTER MIDNIGHT FOR RIGHT CHEST PIG TAIL DRAINAGE WITH IR, FOR PLEURAL EFFUSION, PATIENT VERBALIZED UNDERSTANDING, BED IN LOWEST AND LOCKED POSITION , WILL CONT TO MONITOR
--- NOTE | 2019-11-19 22:19 | NUR ---
RN NOTES, ENDORSED PATIENT TO RAFAL RN FOR CONTINUATION OF CARE, PATIENT IN STABLE CONDITION, MEDICATIONS DUE ADMINISTERED.
--- NOTE | 2019-11-19 22:30 | NUR ---
AUXILIARY EQUIPMENT OPERATOR NOTE ASSUMED CARE FOR THE PT. PT IN BED ASLEEP, AROUSABLE, NO DISTRESS OR DISCOMFORT NOTED. DENIES PAIN. ON 2L VIA N/C O2 SAT 100%. ON TELE SR 60. PT WILL NPO AFTER MIDNIGHT REMINDED THE PT. NOT TO EAT OR DRINK. ZORA PICC LINE INTACT TKO NS. ALL NEEDS ATTENDED. SIDE RAILS UP X 2 AND CALL LIGHT WITHIN REACH. VSS. CONTINUE TO MONITOR HIM.
[2019-11-20] VITALS (7 sets, daily range): BP systolic 77–130; BP diastolic 42–86
[2019-11-20] MEDS: HYDROCORTISONE SOD SUCCINATE 100 MG/2 ML VIAL IV SCH ×3 (05:25→21:29)
[2019-11-20] MEDS: METRONIDAZOLE 500MG/ NS 100ML 500 MG in PREMIX 1 EA IV SCH ×3 (05:25→21:30)
--- NOTE | 2019-11-20 06:13 | NUR ---
SYSTEMS PROTECTION TECHNICIAN NOTE PT IN BED NO DISTRESS OR DISCOMFORT NOTED. DENIES PAIN. ON TELE SR 60. SIDE RAILS UP X 2 AND CALL LIGHT WITHIN REACH. WILL ENDORSE TO DAY SHIFT NURSE FOR CONTINUE TO CARE.
[2019-11-20 06:39] LABS: BASOPHILS % (AUTO) 0.3 % (0.0-2.0); HEMATOCRIT 31 % (39-51); LYMPHOCYTES # (AUTO) 0.2 /CMM (0.8-4.8); MEAN CORPUSCULAR HGB CONC 32 g/dl (31.0-36.0); MEAN CORPUSCULAR VOLUME 95 fL (80-96); MONOCYTES # (AUTO) 0.2 /CMM (0.1-1.30); MONOCYTES % (AUTO) 2.8 % (2.0-12.0); NEUTROPHILS # (AUTO) 7.8 /CMM (1.8-8.9); NEUTROPHILS % (AUTO) 93.9 % (43.0-81.0); PLATELET COUNT (AUTO) 158 /CMM (150-450); RED BLOOD CELL COUNT(AUTO) 3.31 MIL/uL (4.5-6.0); WHITE BLOOD COUNT (AUTO) 8.3 K/uL (4.3-11.0)
[2019-11-20 07:23] LABS: CREATININE 6.8 mg/dL (0.6-1.3); POTASSIUM 4.4 mmol/L (3.5-5.1)
[2019-11-20] MEDS: PANTOPRAZOLE 40 MG TABLET.DR PO SCH (07:30)
--- NOTE | 2019-11-20 07:30 | NUR ---
RN NOTE THE PATIENT IS RECEIVED IN BED. THE PATIENT IS ALERT AND ORIENTED X3. DENIES PAIN. THE PATIENT IS RECEIVING OXYGEN AT 2L/MIN VIA NASAL CANNULA AND DENIES SOB. RESPIRATION REGULAR AND UNLABORED. LEFT UPPER ARM PICC LINE PATENT AND SALINE LOCKED. RIGHT UPPER ARM AV SHUNT PRESENT. PATIENT NPO SINCE MIDNIGHT A PREPARATION FOR A PROCEDURE. THE PATIENT IN NO APPARENT DISTRESS. BED LOW AND LOCKED. SIDE RAILS UP X3. CALL LIGHT WITHIN REACH. WILL CONTINUE TO MONITOR.
[2019-11-20] MEDS: SEVELAMER CARBONATE 800 MG TABLET PO SCH ×3 (08:00→18:41)
[2019-11-20] MEDS: GABAPENTIN 100 MG CAPSULE PO SCH ×2 (08:10→18:41)
[2019-11-20] MEDS: ASPIRIN EC 81 MG TABLET.DR PO SCH (08:10)
[2019-11-20] MEDS: AMIODARONE HCL 200 MG TABLET PO SCH (08:10)
[2019-11-20] MEDS: BLOOD SUGAR DIAGNOSTIC 1 EACH STRIP IN SCH ×4 (09:05→21:45)
[2019-11-20] MEDS: SILVER SULFADIAZINE CREAM 25 GM TUBE TP SCH (09:05)
[2019-11-20] MEDS: HYDROGEL DRESSING 90 GM TUBE TP SCH (09:06)
--- NOTE | 2019-11-20 09:06 | NUR ---
RN NOTE BLOOD SUGAR IS CHECKED AT 0900 INSTEAD OF 0730 PER PATIENT`S REQUEST. BLOOD SUGAR IS 218. NO COVERAGE GIVEN DUE TO PATIENT NPO SINCE MIDNIGHT FOR A PROCEDURE. THE PATIENT ALERT AND ORIENTED X3. DENIES PAIN. DENIES SOB. RESPIRATION REGULAR ND UNLABORED. THE PATIENT TAKEN TO DIAGNOSTIC DEPARTMENT FOR A PROCEDURE. LEFT THE FLOOR IN STABLE CONDITION.
[2019-11-20] MEDS: INSULIN REGULAR, HUMAN 100 UNIT/ML 3 ML VIAL SQ PRN ×4 (09:16→21:40)
[2019-11-20] MEDS ORDERED: FENTANYL PF 250MCG/5ML AMPUL IV ONE (10:00)
[2019-11-20] MEDS ORDERED: MIDAZOLAM HCL 5MG/ML VIAL 25 MG/5 ML VIAL IV ONE (10:00)
[2019-11-20] MEDS ORDERED: NALOXONE PREFILLED SYRINGE 2 MG/2 ML SYRINGE IV ONE (10:00)
--- NOTE | 2019-11-20 11:47 | NUR ---
RN NOTE THE PATIENT IS BACK FROM THE PROCEDURE. THE PATIENT IS NOTED TO HAVE RIGHT CHEST PIGTAIL CATHETER WITH 175 ML OF SEROSANGUINEOUS DRAINAGE. THE CATHETER SITE COVERED WITH TRANSPARENT DRESSING THAT IS MODERATELY SOILED WITH SEROSANGUINEOUS FLUID. THE PATIENT IN NO APPARENT DISTRESS. RESPIRATION REGULAR AND UNLABORED. THE PATIENT IS ON OXYGEN AT 2L/MIN VIA NASAL CANNULA AND DENIES SOB. RESPIRATION REGULAR AND UNLABORED. WILL CONTINUE TO MONITOR THE PATIENT.
--- NOTE | 2019-11-20 11:51 | NUR ---
RN NOTE PER DR ANNE NURSING MAY CHANGE THE DRESSING OF RIGHT CHEST PIGTAIL IF THE DRESSING GETS VERY SOILED. THE ORDER IS NOTED AND CARRIED OUT.
--- NOTE | 2019-11-20 12:05 | NUR ---
RN NOTE PER IRONER MACHINE ABIODUN NEW ORDER OF RENAL STANDARD DIET AND NEPRO BID. NOTED AND CARRIED OUT.
[2019-11-20] MEDS ORDERED: NEPRO VAN 237 ML CAN PO PRN (12:30)
[2019-11-20] MEDS: CEFTRIAXONE 1 G in IV D5W 50 ML IV SCH (16:26)
--- NOTE | 2019-11-20 16:26 | NUR ---
RN NOTE RECEPHIN 1 G DUE AT 1400 ID ADMINISTERED AT 1626 BECAUSE THE PATIENT WAS GETTING DIALYSIS. LORI RASCON IS AWARE.
[2019-11-20] MEDS: APIXABAN 2.5 MG TABLET PO SCH (16:29)
--- NOTE | 2019-11-20 18:07 | NUR ---
RN NOTE THE PATIENT VERBALIZED THAT [facility] SOFT DIET IS HARD FOR HIM TO CHEW DUE TO HAVING MISSING TOOTH AND REQUESTED TO BE SERVED PURRED FOOD INSTEAD. LORI RASCON IS MADE AWARE AND DIET TEXTURE CHANGED TO PUREED.
--- NOTE | 2019-11-20 19:06 | NUR ---
RN NOTE THE PATIENT IS ALERT AND ORIENTED X3. RECEIVING OXYGEN AT 2L/MIN VIA NASAL CANNULA AND SATURATION IS AT 98%. DENIES SOB. RESPIRATION REGULAR AND UNLABORED. DENIES PAIN. MARINA AV SHUNT PRESENT. THE PATIENT GOT DIALYSIS TODAY WITH 900 ML OUTPUT. RIGHT PIGTAIN CATH OUTPUT DURING THE SHIFT 450 ML SEROSANGUINEOUS. PIGTAIN DRESSING CHANGED PER ORDER DUE TO BEING VERY SOILED WITH BLOOD. DRESSING HAS BEEN CLEAN AND DRY SINCE CHANGING IT. ZORA PICCLINE PATENT AND SALINE LOCKED. EXTERNAL ETEL BOX READING IS A-PACING AT 60. BED LOW AND LOCKED. SIDE RAILS UP X2. CALL LIGHT WITHIN REACH. WILL ENDORSE TO CASTINGS DRAFTER.
--- NOTE | 2019-11-20 19:40 | NUR ---
RN OPENING NOTES: Rec'd pt awake in bed watching TV A&Ox3. On 2LPM NC tolerating well. No SOB or resp distress noted. Breathing even and unlabored. Pacemaker noted. A pacing on tele monitor w/ HR in 60s. ZORA PICC line patent and flushed w/ dressing c/d/i. MARINA AV shunt. R chest pigtail noted w/ sanguinous drainage. Pt anuric. NPO after midnight for procedure in am. Safety measures in place. Will continue to monitor.
[2019-11-21] VITALS (7 sets, daily range): BP systolic 95–122; BP diastolic 51–68
[2019-11-21] MEDS: HYDROCORTISONE SOD SUCCINATE 100 MG/2 ML VIAL IV SCH ×3 (05:03→20:12)
[2019-11-21] MEDS: METRONIDAZOLE 500MG/ NS 100ML 500 MG in PREMIX 1 EA IV SCH ×3 (05:04→20:13)
--- NOTE | 2019-11-21 05:22 | NUR ---
RN NOTE: 0516: Pt c/o of 9 leg pain. Currently NPO for angio procedure. Paged Dr. Higinio Briscoe, pony roll finisher for orders. 0522: Gave order for morphine 2mg IV Q4H PRN. Order noted and carried out.
[2019-11-21] MEDS: MORPHINE SULFATE INJ 2 MG/ML DISP.SYRIN IV PRN ×3 (05:40→20:14)
[2019-11-21] MEDS ORDERED: LIDOCAINE HCL/PF 1% 30 ML SDV ONE (05:55)
[2019-11-21] MEDS ORDERED: IV NS 0.9% 1,000 ML ONE (06:02)
[2019-11-21] MEDS ORDERED: HEPARIN SODIUM, PORCINE 1,000 UNIT/ML VIAL ONE (06:17)
--- NOTE | 2019-11-21 06:24 | NUR ---
RN NOTE: Pt going to angio procedure in stable condition.
[2019-11-21 06:48] LABS: BASOPHILS % (AUTO) 0.2 % (0.0-2.0); HEMATOCRIT 30 % (39-51); HEMOGLOBIN 9.9 g/dL (13.5-17.5); LYMPHOCYTES # (AUTO) 0.2 /CMM (0.8-4.8); LYMPHOCYTES % (AUTO) 2.5 % (20.0-44.0); MEAN CORPUSCULAR HGB CONC 33 g/dl (31.0-36.0); MEAN CORPUSCULAR VOLUME 95 fL (80-96); MONOCYTES # (AUTO) 0.2 /CMM (0.1-1.30); MONOCYTES % (AUTO) 2.2 % (2.0-12.0); NEUTROPHILS # (AUTO) 7.8 /CMM (1.8-8.9); NEUTROPHILS % (AUTO) 95.1 % (43.0-81.0); PLATELET COUNT (AUTO) 167 /CMM (150-450); RED BLOOD CELL COUNT(AUTO) 3.19 MIL/uL (4.5-6.0); WHITE BLOOD COUNT (AUTO) 8.2 K/uL (4.3-11.0)
[2019-11-21 06:50] LABS: CALCIUM, SERUM 8.1 mg/dL (8.5-10.1); CREATININE 6.2 mg/dL (0.6-1.3); POTASSIUM 4.4 mmol/L (3.5-5.1)
[2019-11-21] MEDS ORDERED: IODIXANOL 150 ML IV ONE ×2 (06:53→07:55)
[2019-11-21] MEDS ORDERED: FENTANYL PF 100MCG/2ML AMPUL ONE (07:08)
[2019-11-21] MEDS ORDERED: MIDAZOLAM HCL 2 MG/2ML VIAL ONE (07:09)
[2019-11-21] MEDS: BLOOD SUGAR DIAGNOSTIC 1 EACH STRIP IN SCH ×4 (07:30→21:23)
[2019-11-21] MEDS: PANTOPRAZOLE 40 MG TABLET.DR PO SCH (07:30)
--- NOTE | 2019-11-21 07:48 | NUR ---
RN OPENING NOTE Patient is not on floor, currently at angio cath. Report received from manufacturing supervisor 2nd shift RN.
--- NOTE | 2019-11-21 08:49 | NUR ---
Post Left Heart Catheterization and Abdominal Aortic Angiogram with Run off; access on R femoral area; Pt had Fentanyl 50 mcg IVP and Versed 1 mg IVP at 0711 (see [facility] notes) for details pt tolerated procedure VSS ; denies pain or SOb at this, maintained on NC 2 LPM as pre procedure; Pedal pulses positive otto by doppler as preprocedure. Report given to Lolis GILLESPIE; transferred by bed to [facility]
[2019-11-21] MEDS: SILVER SULFADIAZINE CREAM 25 GM TUBE TP SCH (09:00)
[2019-11-21] MEDS: HYDROGEL DRESSING 90 GM TUBE TP SCH (09:00)
[2019-11-21] MEDS: APIXABAN 2.5 MG TABLET PO SCH ×2 (09:00→17:00)
[2019-11-21] MEDS: AMIODARONE HCL 200 MG TABLET PO SCH (09:00)
[2019-11-21] MEDS: ASPIRIN EC 81 MG TABLET.DR PO SCH (09:00)
--- NOTE | 2019-11-21 09:29 | NUR ---
RN NOTE BACK FROM CORONARY ANGIO Patient is back from coronary angio, A/O x4, showing no signs of acute distress or SOB, saturating 100% on 2L NC. Tele monitor is controlled a-fib/a-pacing ENEDELIA pacemaker noted. Bilateral pulses are present/weak using doppler machine. BP 115/51 HR 59 RR 20. Right femoral cath site dressing is clean and dry. Right chest pig tail cath has 200cc serosanguineous output. MARINA AV shunt is noted. ZORA picc line is clean and intact flushing well. patient is layed flat on bed. Bed is in lowest position, side rails x3, call light is within reach, fall safety and aspiration precautions enforced. Will continue with plan of care.
[2019-11-21] MEDS: SEVELAMER CARBONATE 800 MG TABLET PO SCH ×3 (10:06→17:10)
[2019-11-21] MEDS: GABAPENTIN 100 MG CAPSULE PO SCH ×2 (10:06→17:10)
[2019-11-21] MEDS: MIDODRINE HCL (5MG) 5 MG TABLET PO PRN (10:06)
[2019-11-21] MEDS: INSULIN REGULAR, HUMAN 100 UNIT/ML 3 ML VIAL SQ PRN ×3 (12:20→21:24)
[2019-11-21] MEDS: CEFTRIAXONE 1 G in IV D5W 50 ML IV SCH (14:25)
--- NOTE | 2019-11-21 19:20 | NUR ---
Rn Notes received pt resting in bed, A/O x4, showing no signs of acute distress or SOB, SPO2 100% on 2L NC. Tele monitor is controlled a-fib/a-pacing with ENEDELIA pacemaker noted. Bilateral pedal pulses are present. Right femoral angio site dressing is clean and dry. Right chest pig tail cath on placed serosanguineous output. MARINA AV shunt is noted. ZORA picc line is clean and intact flushing well. Bed is in lowest position, side rails x3, call light is within reach, fall safety and aspiration precautions enforced. will cont to monitor
--- NOTE | 2019-11-21 19:29 | NUR ---
RN CLOSING NOTE Patient is resting in bed, A/O x4, showing no signs of acute distress or SOB, saturating 100% on 2L NC. Tele monitor is controlled a-fib/a-pacing ENEDELIA pacemaker noted. Bilateral pedal pulses are present. Right femoral angio site dressing is clean and dry. Right chest pig tail cath has a total of 300cc serosanguineous output. MARINA AV shunt is noted. ZORA picc line is clean and intact flushing well. All patient needs met, all due medications given, patient able to tolerate meals today. Bed is in lowest position, side rails x3, call light is within reach, fall safety and aspiration precautions enforced. Endorsed to obstetric assistant RN for ZHANG.
[2019-11-22] VITALS: BP 109/54
[2019-11-22 04:00] VITALS: BP 93/50
[2019-11-22] MEDS: HYDROCORTISONE SOD SUCCINATE 100 MG/2 ML VIAL IV SCH ×3 (04:32→20:10)
[2019-11-22] MEDS: METRONIDAZOLE 500MG/ NS 100ML 500 MG in PREMIX 1 EA IV SCH ×3 (04:32→20:10)
[2019-11-22] MEDS: IV NS 0.9% 250 ML IV PRN (04:33)
[2019-11-22] MEDS: Z GUARD REMEDY 2 OZ OINT TP PRN (04:34)
[2019-11-22] MEDS: MORPHINE SULFATE INJ 2 MG/ML DISP.SYRIN IV PRN ×2 (06:50→21:14)
[2019-11-22 06:58] LABS: BASOPHILS % (AUTO) 0.2 % (0.0-2.0); HEMATOCRIT 29 % (39-51); HEMOGLOBIN 9.2 g/dL (13.5-17.5); LYMPHOCYTES # (AUTO) 0.2 /CMM (0.8-4.8); LYMPHOCYTES % (AUTO) 1.7 % (20.0-44.0); MEAN CORPUSCULAR HGB CONC 32 g/dl (31.0-36.0); MEAN CORPUSCULAR VOLUME 96 fL (80-96); MONOCYTES # (AUTO) 0.2 /CMM (0.1-1.30); MONOCYTES % (AUTO) 1.5 % (2.0-12.0); NEUTROPHILS # (AUTO) 9.9 /CMM (1.8-8.9); NEUTROPHILS % (AUTO) 96.6 % (43.0-81.0); PLATELET COUNT (AUTO) 171 /CMM (150-450); RED BLOOD CELL COUNT(AUTO) 2.99 MIL/uL (4.5-6.0); WHITE BLOOD COUNT (AUTO) 10.2 K/uL (4.3-11.0)
--- NOTE | 2019-11-22 07:01 | NUR ---
RN NOTES PT ON BED ASLEEP NO SIGN AND SYMPTOMS OF RESPIRATORY DISTRESS NO COMPLAINT OF PAIN TELE MONITOR READS A PACING SINUS RHYTHM 60S, NO SIGNIFICANT CHANGES ON CONDITION NOTED ALL NEEDS ATTENDED SAFETY MEASURE MAINTAINED BED ON LOWEST POSITION AND LOCKED SIDE RAILS UP X2 CALL LIGHT WITHIN REACH WILL ENDORSED TO AM SHIFT NURSE
--- NOTE | 2019-11-22 07:15 | NUR ---
PT LYING IN BED W HOB ELEVATED. AWAKE AND ALERT X4. 2LMIN NASAL CANULA SPO2 97%. NO SOB. REPORTS 5/10 PAIN IN L LEG. ASSISTED W REPOSITIONING AND ELEVATING LEGS ON PILLOW. WELL RECHECK PAIN THROUGHOUT THE DAY. TELE ON SR AND JUNCTIONAL IN THE 60S. PT ANURIC. BLE EDEMA +1 NOTED. SACRUM COVERED W Z GAURD AND MEPILEX ORDERED. TOLERATING FOOD WELL APPETITE GOOD. PIGTAIL DRAIN TO R CHEST DRAINING YELLOW-PINK CLOUDY FLUID. ZORA PICC FLUSHED AND PATENT. DRESSING INTACT. MARINA AV SHUNT NOTED. ENCOURAGING PT TO INCREASE PO INTAKE TO INCREASE ENERGY LEVELS. MONITORING PAIN IN L LEG. MONITORING DRAINING OF PIGTAIL AND SPO2 AND RESPIRATIONS. ALL HOSPITAL POLICY SAFETY PRECAUTIONS IMPLEMENTED.
[2019-11-22 07:27] LABS: CREATININE 6.8 mg/dL (0.6-1.3); MAGNESIUM 2.6 mg/dL (1.8-2.4); PHOSPHORUS 5.1 mg/dL (2.5-4.9); POTASSIUM 4.7 mmol/L (3.5-5.1)
[2019-11-22 08:00] VITALS: BP 101/50
[2019-11-22] MEDS: SEVELAMER CARBONATE 800 MG TABLET PO SCH ×3 (08:22→17:41)
[2019-11-22] MEDS: PANTOPRAZOLE 40 MG TABLET.DR PO SCH (08:22)
[2019-11-22] MEDS: INSULIN REGULAR, HUMAN 100 UNIT/ML 3 ML VIAL SQ PRN ×3 (08:24→21:15)
[2019-11-22] MEDS: AMIODARONE HCL 200 MG TABLET PO SCH (09:08)
[2019-11-22] MEDS: GABAPENTIN 100 MG CAPSULE PO SCH ×2 (09:08→17:43)
[2019-11-22] MEDS: APIXABAN 2.5 MG TABLET PO SCH ×2 (09:09→17:42)
[2019-11-22] MEDS: ASPIRIN EC 81 MG TABLET.DR PO SCH (09:09)
[2019-11-22] MEDS: BLOOD SUGAR DIAGNOSTIC 1 EACH STRIP IN SCH ×4 (09:10→21:14)
[2019-11-22] MEDS: HYDROGEL DRESSING 90 GM TUBE TP SCH (09:11)
[2019-11-22] MEDS: SILVER SULFADIAZINE CREAM 25 GM TUBE TP SCH (09:11)
--- NOTE | 2019-11-22 11:08 | NUR ---
PT LYING IN BED W HOB ELEVATED. AWAKE AND ALERT X4. 2LMIN NASAL CANULA SPO2 97%. NO SOB. REPORTS 5/10 PAIN IN L LEG. ASSISTED W REPOSITIONING AND ELEVATING LEGS ON PILLOW. WELL RECHECK PAIN THROUGHOUT THE DAY. TELE ON SR AND JUNCTIONAL IN THE 60S. PT ANURIC. BLE EDEMA +1 NOTED. SACRUM COVERED W Z GAURD AND MEPILEX ORDERED. TOLERATING FOOD WELL APPETITE GOOD. PIGTAIL DRAIN TO R CHEST DRAINING YELLOW-PINK CLOUDY FLUID. ZORA PICC FLUSHED AND PATENT. DRESSING INTACT. MARINA AV SHUNT NOTED. ENCOURAGING PT TO INCREASE PO INTAKE TO INCREASE ENERGY LEVELS. MONITORING PAIN IN L LEG. MONITORING DRAINING OF PIGTAIL AND SPO2 AND RESPIRATIONS. ALL HOSPITAL POLICY SAFETY PRECAUTIONS IMPLEMENTED. Addendum: 11/22/19 at 1114 by TERRANCE DE LOS SANTOS RN REFER TO TIME 0715 NOTE FOR CORRECT TIME.
[2019-11-22 14:55] VITALS: BP 101/50
[2019-11-22] MEDS: CEFTRIAXONE 1 G in IV D5W 50 ML IV SCH (15:20)
[2019-11-22 16:00] VITALS: BP 110/55
--- NOTE | 2019-11-22 19:15 | NUR ---
PT LYING IN BED W HOB ELEVATED. AWAKE AND ALERT X4. 2LMIN NASAL CANULA SPO2 97-100%. NO SOB. DENIES PAIN. ASSISTED W REPOSITIONING AND ELEVATING LEGS ON PILLOW. TELE ON SR AND JUNCTIONAL IN THE 60-80S. PT ANURIC. BLE EDEMA +1 NOTED. SACRUM COVERED W Z GAURD AND MEPILEX ORDERED. TOLERATING FOOD WELL APPETITE GOOD. PIGTAIL DRAIN TO R CHEST DRAINED YELLOW-PINK CLOUDY FLUID 300ML. ZORA PICC FLUSHED AND PATENT. DRESSING INTACT. MARINA AV SHUNT NOTED. ENCOURAGED PT TO INCREASE PO INTAKE TO INCREASE ENERGY LEVELS. MONITORED PAIN IN L LEG. MONITORED DRAINING OF PIGTAIL AND SPO2 AND RESPIRATIONS. ALL HOSPITAL POLICY SAFETY PRECAUTIONS IMPLEMENTED. ENDORSED TO PM RN.
[2019-11-22 20:24] VITALS: BP 112/60
--- NOTE | 2019-11-22 23:00 | NUR ---
RN NOTES RECEIVED PATIENT FROM JOSE MIGUEL VELAZQUEZ FOR ZHANG @2300. CRIBBING SETTER WELL AWARE. WILL CONTINUE TO MONITOR AND REASSESS FOR ANY CHANGES THROUGHOUT THE SHIFT.
--- NOTE | 2019-11-23 01:00 | NUR ---
RN NOTES NO NOTED CHANGES TO PATIENT CONDITION/STATUS. PET STORE MERCHANDISER MADE AWARE. WILL CONTINUE TO MONITOR AND REASSESS FOR ANY CHANGES THROUGHOUT THE SHIFT.
--- NOTE | 2019-11-23 01:30 | NUR ---
RN NOTES HD-RN NOTIFIED PRIMARY RN THAT PT IS DONE FOR HIS HD TODAY AND WAS ABLE TO REMOVED 500ML OUTPUT; PT TOLERATE WELL WITH STABLE V/S BEFORE AND AFTER PROCEDURE. BLENDER/BRAZE APPLICATOR MADE AWARE. WILL CONTINUE TO MONITOR AND REASSESS FOR ANY CHANGES THROUGHOUT THE SHIFT.
[2019-11-23 04:00] VITALS: BP 103/44
[2019-11-23] MEDS: METRONIDAZOLE 500MG/ NS 100ML 500 MG in PREMIX 1 EA IV SCH ×3 (04:00→23:37)
[2019-11-23] MEDS: HYDROCORTISONE SOD SUCCINATE 100 MG/2 ML VIAL IV SCH ×3 (04:02→23:41)
[2019-11-23] MEDS: MORPHINE SULFATE INJ 2 MG/ML DISP.SYRIN IV PRN ×2 (06:37→23:46)
[2019-11-23 06:42] LABS: BASOPHILS # (AUTO) 0.1 /CMM (0.0-0.2); BASOPHILS % (AUTO) 0.5 % (0.0-2.0); HEMATOCRIT 27 % (39-51); HEMOGLOBIN 8.7 g/dL (13.5-17.5); LYMPHOCYTES # (AUTO) 0.2 /CMM (0.8-4.8); LYMPHOCYTES % (AUTO) 1.5 % (20.0-44.0); MEAN CORPUSCULAR HGB CONC 32 g/dl (31.0-36.0); MEAN CORPUSCULAR VOLUME 96 fL (80-96); MONOCYTES # (AUTO) 0.2 /CMM (0.1-1.30); MONOCYTES % (AUTO) 1.7 % (2.0-12.0); NEUTROPHILS # (AUTO) 12.7 /CMM (1.8-8.9); NEUTROPHILS % (AUTO) 96.3 % (43.0-81.0); PLATELET COUNT (AUTO) 167 /CMM (150-450); RED BLOOD CELL COUNT(AUTO) 2.85 MIL/uL (4.5-6.0); WHITE BLOOD COUNT (AUTO) 13.2 K/uL (4.3-11.0)
--- NOTE | 2019-11-23 06:51 | NUR ---
RN NOTES PATIENT REMAINS IN ROOM IN NO SIGNS OF RESPIRATORY DISTRESS. PATIENT SATURATING 100% OF 02. VITAL SIGNS WNL. IV LINE MAINTAINED, INTACT, PATENT AND FLUSHING, NO SITE REDNESS OR INFILTRATION. SAFETY PRECAUTIONS IN PLACE AND COMFORT MEASURES RENDERED. BED IN LOWEST POSITION, CALL LIGHT WITHIN REACH, BREAKS ON, SIDE RAILS UP. ALL NEEDS ATTENDED, MEDICATIONS GIVEN SCHEDULED AND ORDERED ; SHIFT ASSESSMENT/BEDBATH/SKIN CARE DONE. PATIENT KEPT CLEAN AND DRY. WILL ENDORSE TO INCOMING SHIFT FOR ZHANG WITH ALL PERTINENT INFO REGARDING PATIENT STATUS.
--- NOTE | 2019-11-23 07:10 | NUR ---
RN OPENING NOTES RECEIVED PT AWAKE, A/OX4. PT ON O2 VIA NC SATURATING @100%. NO SOB OR ANY SIGNS OF RESPIRATORY DISTRESS NOTED AT THIS TIME. IV SITE AT ZORA PICC LINE INTACT, PATENT AND FLUSHED. MARINA AV SHUNT FOR HD. R CHEST PIGTAIL DRAINING INTO LIGHT REDDISH OUTPUT. SAFETY MEASURES OBSERVED. CALL LIGHT WITHIN REACH. BED LOCKED AND AT LOWEST POSITION WITH SIDE RAILS UP. WILL CONTINUE TO MONITOR
[2019-11-23 07:12] LABS: CALCIUM, SERUM 7.9 mg/dL (8.5-10.1); CREATININE 5.4 mg/dL (0.6-1.3); MAGNESIUM 2.3 mg/dL (1.8-2.4); PHOSPHORUS 4.5 mg/dL (2.5-4.9); POTASSIUM 4.2 mmol/L (3.5-5.1)
[2019-11-23] MEDS: PANTOPRAZOLE 40 MG TABLET.DR PO SCH (08:04)
[2019-11-23] MEDS: SEVELAMER CARBONATE 800 MG TABLET PO SCH ×3 (08:04→17:18)
[2019-11-23] MEDS: BLOOD SUGAR DIAGNOSTIC 1 EACH STRIP IN SCH ×4 (08:04→23:56)
[2019-11-23] MEDS: INSULIN REGULAR, HUMAN 100 UNIT/ML 3 ML VIAL SQ PRN ×4 (08:08→23:55)
[2019-11-23] MEDS: ASPIRIN EC 81 MG TABLET.DR PO SCH (08:24)
[2019-11-23] MEDS: AMIODARONE HCL 200 MG TABLET PO SCH (08:25)
[2019-11-23] MEDS: GABAPENTIN 100 MG CAPSULE PO SCH ×2 (08:25→17:17)
[2019-11-23] MEDS: APIXABAN 2.5 MG TABLET PO SCH ×2 (08:26→17:20)
[2019-11-23] MEDS: SILVER SULFADIAZINE CREAM 25 GM TUBE TP SCH (08:39)
[2019-11-23] MEDS: HYDROGEL DRESSING 90 GM TUBE TP SCH (08:39)
[2019-11-23 12:00] VITALS: BP 123/53
[2019-11-23] MEDS: CEFTRIAXONE 1 G in IV D5W 50 ML IV SCH (13:10)
--- NOTE | 2019-11-23 19:47 | NUR ---
RN CLOSING NOTES PT AWAKE, A/OX4. PT ON O2 VIA NC SATURATING @100%. NO SOB OR ANY SIGNS OF RESPIRATORY DISTRESS NOTED AT THIS TIME. IV SITE AT ZORA PICC LINE INTACT, PATENT AND FLUSHED. MARINA AV SHUNT FOR HD. R CHEST PIGTAIL DRAINING INTO LIGHT REDDISH OUTPUT. NO PAIN REPORTED AT THIS TIME. SAFETY MEASURES OBSERVED. CALL LIGHT WITHIN REACH. BED LOCKED AND AT LOWEST POSITION WITH SIDE RAILS UP. WILL ENDORSE TO RETAIL COS[employer] SALES COUNTER MANAGER FOR ZHANG
[2019-11-23 20:00] VITALS: BP 103/47
[2019-11-24 04:00] VITALS: BP 103/52
[2019-11-24] MEDS: HYDROCORTISONE SOD SUCCINATE 100 MG/2 ML VIAL IV SCH ×3 (05:46→21:18)
[2019-11-24] MEDS: METRONIDAZOLE 500MG/ NS 100ML 500 MG in PREMIX 1 EA IV SCH ×3 (05:47→21:18)
[2019-11-24 05:56] LABS: BASOPHILS % (AUTO) 0.1 % (0.0-2.0); HEMATOCRIT 26 % (39-51); HEMOGLOBIN 8.3 g/dL (13.5-17.5); LYMPHOCYTES # (AUTO) 0.2 /CMM (0.8-4.8); LYMPHOCYTES % (AUTO) 1.2 % (20.0-44.0); MEAN CORPUSCULAR HGB CONC 32 g/dl (31.0-36.0); MEAN CORPUSCULAR VOLUME 96 fL (80-96); MONOCYTES # (AUTO) 0.2 /CMM (0.1-1.30); MONOCYTES % (AUTO) 1.5 % (2.0-12.0); NEUTROPHILS # (AUTO) 15.4 /CMM (1.8-8.9); NEUTROPHILS % (AUTO) 97.2 % (43.0-81.0); PLATELET COUNT (AUTO) 169 /CMM (150-450); RED BLOOD CELL COUNT(AUTO) 2.72 MIL/uL (4.5-6.0); WHITE BLOOD COUNT (AUTO) 15.8 K/uL (4.3-11.0)
--- NOTE | 2019-11-24 06:33 | NUR ---
RN notes Resting comfortably in bed with no distress noted. Breathing even and unlabored. On 2lpm via nasal cannula tolerating well. Alert and oriented. Verbally able to communicate needs. No complaint of pain or discomfort. Vital signs wnl. No significant change of condition. Kept clean and dry. Will endorse to next shift for continuity of care.
[2019-11-24 06:35] LABS: CALCIUM, SERUM 7.9 mg/dL (8.5-10.1); CREATININE 6.4 mg/dL (0.6-1.3); MAGNESIUM 2.5 mg/dL (1.8-2.4); PHOSPHORUS 5.3 mg/dL (2.5-4.9); POTASSIUM 4.7 mmol/L (3.5-5.1)
--- NOTE | 2019-11-24 07:10 | NUR ---
RN OPENING NOTES RECEIVED PT AWAKE, A/OX4. PT ON O2 VIA NC SATURATING @100%. NO SOB OR ANY SIGNS OF RESPIRATORY DISTRESS NOTED AT THIS TIME. IV SITE AT ZORA PICC LINE INTACT, PATENT AND FLUSHED. MARINA AV SHUNT FOR HD. R CHEST PIGTAIL DRAINING INTO LIGHT REDDISH OUTPUT. NO PAIN REPORTED AT THIS TIME. SAFETY MEASURES OBSERVED. CALL LIGHT WITHIN REACH. BED LOCKED AND AT LOWEST POSITION WITH SIDE RAILS UP. WILL CONTINUE TO MONITOR
[2019-11-24] MEDS: BLOOD SUGAR DIAGNOSTIC 1 EACH STRIP IN SCH ×4 (07:50→21:19)
[2019-11-24 08:00] VITALS: BP 113/50
[2019-11-24] MEDS: SEVELAMER CARBONATE 800 MG TABLET PO SCH ×3 (08:03→17:43)
[2019-11-24] MEDS: PANTOPRAZOLE 40 MG TABLET.DR PO SCH (08:03)
[2019-11-24] MEDS: INSULIN REGULAR, HUMAN 100 UNIT/ML 3 ML VIAL SQ PRN ×3 (08:05→21:20)
[2019-11-24] MEDS: GABAPENTIN 100 MG CAPSULE PO SCH ×2 (08:23→17:43)
[2019-11-24] MEDS: ASPIRIN EC 81 MG TABLET.DR PO SCH (08:23)
[2019-11-24] MEDS: AMIODARONE HCL 200 MG TABLET PO SCH (08:24)
[2019-11-24] MEDS: HYDROGEL DRESSING 90 GM TUBE TP SCH (08:25)
[2019-11-24] MEDS: APIXABAN 2.5 MG TABLET PO SCH ×2 (08:25→17:00)
[2019-11-24] MEDS: SILVER SULFADIAZINE CREAM 25 GM TUBE TP SCH (08:25)
[2019-11-24] MEDS: MORPHINE SULFATE INJ 2 MG/ML DISP.SYRIN IV PRN ×2 (11:13→19:41)
[2019-11-24] MEDS: IV NS 0.9% 250 ML IV PRN (11:53)
[2019-11-24 12:00] VITALS: BP 120/40
[2019-11-24] MEDS: CEFTRIAXONE 1 G in IV D5W 50 ML IV SCH (13:49)
--- NOTE | 2019-11-24 17:00 | NUR ---
RN N0TES PER DIALYSIS NURSE HOLD ELIQUIS WHILE PT IS HAVING DIALYSIS. WILL CONTINUE TO MONITOR
--- NOTE | 2019-11-24 19:10 | NUR ---
RN OPENING NOTES: Rec'd ot in bed, A&Ox4. On 2LPM NC tolerating well. No SOB or resp distress noted. Breathing even and unlabored. ZORA PICC line patent and flushed. Dressing c/d/i. MARINA AV shunt noted, dialysis in session at this time. R chest pigtail in place. Safety measures in place. Will continue to monitor.
--- NOTE | 2019-11-24 19:18 | NUR ---
RN CLOSING NOTES PT AWAKE, A/OX4. PT ON O2 VIA NC SATURATING @100%. NO SOB OR ANY SIGNS OF RESPIRATORY DISTRESS NOTED AT THIS TIME. IV SITE AT ZORA PICC LINE INTACT, PATENT AND FLUSHED. MARINA AV SHUNT FOR HD. R CHEST PIGTAIL DRAINING INTO LIGHT REDDISH OUTPUT. NO PAIN REPORTED AT THIS TIME. DIALYSIS DONE, NO OUTPUT. SAFETY MEASURES OBSERVED. CALL LIGHT WITHIN REACH. BED LOCKED AND AT LOWEST POSITION WITH SIDE RAILS UP. WILL ENDORSE TO COMPOSITE WORKER FOR ZHANG
[2019-11-24 20:00] VITALS: BP 117/32
[2019-11-25] MEDS: MORPHINE SULFATE INJ 2 MG/ML DISP.SYRIN IV PRN ×3 (02:27→23:30)
[2019-11-25 04:00] VITALS: BP 123/57
[2019-11-25] MEDS: HYDROCORTISONE SOD SUCCINATE 100 MG/2 ML VIAL IV SCH ×3 (05:15→21:10)
[2019-11-25] MEDS: METRONIDAZOLE 500MG/ NS 100ML 500 MG in PREMIX 1 EA IV SCH ×3 (05:15→21:10)
[2019-11-25 06:21] LABS: BASOPHILS # (AUTO) 0.2 /CMM (0.0-0.2); BASOPHILS % (AUTO) 1.3 % (0.0-2.0); HEMATOCRIT 25 % (39-51); HEMOGLOBIN 7.9 g/dL (13.5-17.5); LYMPHOCYTES # (AUTO) 0.2 /CMM (0.8-4.8); LYMPHOCYTES % (AUTO) 1.4 % (20.0-44.0); MEAN CORPUSCULAR HGB CONC 32 g/dl (31.0-36.0); MEAN CORPUSCULAR VOLUME 99 fL (80-96); MONOCYTES # (AUTO) 0.2 /CMM (0.1-1.30); MONOCYTES % (AUTO) 1.2 % (2.0-12.0); NEUTROPHILS # (AUTO) 15.7 /CMM (1.8-8.9); NEUTROPHILS % (AUTO) 96.1 % (43.0-81.0); PLATELET COUNT (AUTO) 172 /CMM (150-450); WHITE BLOOD COUNT (AUTO) 16.3 K/uL (4.3-11.0)
--- NOTE | 2019-11-25 07:02 | NUR ---
RN CLOSING NOTES: No acute changes noted throughout shift. Pt on 2LPM NC tolerating well. No SOB or resp distress noted throughout shift. ZORA picc line patent and flushed. Dressing c/d/i. Right chest pigtail in place. MARINA AV shunt noted. Kept clean/dry. All due meds given as ordered. Safety measures in place. Will endorse to oncoming nurse for ZHANG.
[2019-11-25 07:08] LABS: CALCIUM, SERUM 7.9 mg/dL (8.5-10.1); CREATININE 5.2 mg/dL (0.6-1.3); MAGNESIUM 2.4 mg/dL (1.8-2.4); PHOSPHORUS 4.6 mg/dL (2.5-4.9); POTASSIUM 4.6 mmol/L (3.5-5.1)
[2019-11-25] MEDS: SEVELAMER CARBONATE 800 MG TABLET PO SCH ×3 (07:56→17:56)
[2019-11-25] MEDS: PANTOPRAZOLE 40 MG TABLET.DR PO SCH (07:56)
[2019-11-25] MEDS: BLOOD SUGAR DIAGNOSTIC 1 EACH STRIP IN SCH ×4 (07:56→21:18)
[2019-11-25 08:00] VITALS: BP 129/66
[2019-11-25] MEDS: GABAPENTIN 100 MG CAPSULE PO SCH ×2 (08:05→17:56)
[2019-11-25] MEDS: ASPIRIN EC 81 MG TABLET.DR PO SCH (08:05)
[2019-11-25] MEDS: AMIODARONE HCL 200 MG TABLET PO SCH (08:06)
[2019-11-25] MEDS: APIXABAN 2.5 MG TABLET PO SCH ×2 (08:10→17:00)
[2019-11-25] MEDS: INSULIN REGULAR, HUMAN 100 UNIT/ML 3 ML VIAL SQ PRN ×4 (08:12→21:20)
[2019-11-25] MEDS: HYDROGEL DRESSING 90 GM TUBE TP SCH (08:25)
[2019-11-25] MEDS: SILVER SULFADIAZINE CREAM 25 GM TUBE TP SCH (08:25)
[2019-11-25 12:00] VITALS: BP 113/63
--- NOTE | 2019-11-25 13:11 | NUR ---
obtained consent for wound debridement bilateral foot,culture send to lab,DR. Mart debrided bilateral foot at bedside,patient tolerated procedure.
[2019-11-25] MEDS: CEFTRIAXONE 1 G in IV D5W 50 ML IV SCH (14:04)
--- NOTE | 2019-11-25 17:10 | NUR ---
RN NOTES HOLD ELIQUIS DOSE NOW THEN RESUME TOMORROW PER DR. TORRES FOR SIGNS OF BLEEDING IN MARINA AND WOUNDS ON THE FEET. WILL CONTINUE TO MONITOR.
--- NOTE | 2019-11-25 19:09 | NUR ---
RN CLOSING NOTES PT AWAKE, A/OX4. PT ON O2 VIA NC SATURATING @100%. NO SOB OR ANY SIGNS OF RESPIRATORY DISTRESS NOTED AT THIS TIME. IV SITE AT ZORA PICC LINE INTACT, PATENT AND FLUSHED. MARINA AV SHUNT FOR HD. R CHEST PIGTAIL DRAINING INTO LIGHT REDDISH OUTPUT. NO PAIN REPORTED AT THIS TIME. SAFETY MEASURES OBSERVED. CALL LIGHT WITHIN REACH. BED LOCKED AND AT LOWEST POSITION WITH SIDE RAILS UP. WILL ENDORSE TO DE ICER FOR ZHANG
--- NOTE | 2019-11-25 19:20 | NUR ---
RN OPENING NOTES: Rec'd pt in bed, A&ox4. On 2LPM NC tolerating well. No SOB or resp distress noted. Breathing even and unlabored. ZORA PICC line patent and flushed. Dressing c/d/i. Right chest pigtail noted w/ reddish drainage noted at this time. MARINA AV shunt noted. Safety measures in place. Will continue to monitor.
[2019-11-25 20:00] VITALS: BP 107/57
[2019-11-26] VITALS (10 sets, daily range): BP systolic 108–124; BP diastolic 52–78
[2019-11-26] MEDS: HYDROCORTISONE SOD SUCCINATE 100 MG/2 ML VIAL IV SCH ×3 (04:20→20:55)
[2019-11-26] MEDS: METRONIDAZOLE 500MG/ NS 100ML 500 MG in PREMIX 1 EA IV SCH ×3 (04:21→20:55)
--- NOTE | 2019-11-26 06:55 | NUR ---
RN CLOSING NOTES: No acute changes noted throughout shift. Remains on 2LPM NC tolerating well. No SOB or resp distress noted throughout shift. Breathing even and unlabored. ZORA PICC patent. Dressing c/d/i. Right chest pigtail in place w/ minimal drainage noted. MARINA AV shunt noted. Kept clean/dry. All due meds given as ordered. Safety measures in place. Will endorse to morning nurse for ZHANG.
[2019-11-26 06:56] LABS: BASOPHILS # (AUTO) 0.1 /CMM (0.0-0.2); BASOPHILS % (AUTO) 0.4 % (0.0-2.0); HEMATOCRIT 21 % (39-51); LYMPHOCYTES # (AUTO) 0.2 /CMM (0.8-4.8); LYMPHOCYTES % (AUTO) 1.1 % (20.0-44.0); MEAN CORPUSCULAR HGB CONC 32 g/dl (31.0-36.0); MEAN CORPUSCULAR VOLUME 100 fL (80-96); MONOCYTES # (AUTO) 0.2 /CMM (0.1-1.30); MONOCYTES % (AUTO) 1.4 % (2.0-12.0); NEUTROPHILS # (AUTO) 15.3 /CMM (1.8-8.9); NEUTROPHILS % (AUTO) 97.1 % (43.0-81.0); PLATELET COUNT (AUTO) 166 /CMM (150-450); RED BLOOD CELL COUNT(AUTO) 2.11 MIL/uL (4.5-6.0); WHITE BLOOD COUNT (AUTO) 15.8 K/uL (4.3-11.0)
[2019-11-26 07:13] LABS: CALCIUM, SERUM 8.1 mg/dL (8.5-10.1); CREATININE 5.9 mg/dL (0.6-1.3); MAGNESIUM 2.3 mg/dL (1.8-2.4); PHOSPHORUS 5.4 mg/dL (2.5-4.9); POTASSIUM 5.1 mmol/L (3.5-5.1)
[2019-11-26] MEDS: SEVELAMER CARBONATE 800 MG TABLET PO SCH ×3 (07:44→16:38)
[2019-11-26] MEDS: BLOOD SUGAR DIAGNOSTIC 1 EACH STRIP IN SCH ×4 (07:44→23:45)
[2019-11-26] MEDS: PANTOPRAZOLE 40 MG TABLET.DR PO SCH (07:44)
[2019-11-26] MEDS: ASPIRIN EC 81 MG TABLET.DR PO SCH (09:21)
[2019-11-26] MEDS: AMIODARONE HCL 200 MG TABLET PO SCH ×2 (09:22→09:33)
[2019-11-26] MEDS: INSULIN REGULAR, HUMAN 100 UNIT/ML 3 ML VIAL SQ PRN ×4 (09:30→23:53)
[2019-11-26] MEDS: APIXABAN 2.5 MG TABLET PO SCH ×2 (09:30→16:42)
[2019-11-26] MEDS: SILVER SULFADIAZINE CREAM 25 GM TUBE TP SCH (09:32)
[2019-11-26] MEDS: HYDROGEL DRESSING 90 GM TUBE TP SCH (09:32)
[2019-11-26] MEDS: GABAPENTIN 100 MG CAPSULE PO SCH ×2 (09:37→16:34)
[2019-11-26 09:50] LABS: HEMOGLOBIN 6.7 g/dL (13.5-17.5)
[2019-11-26 09:51] LABS: BAND % (MANUAL) 16 % (0.0-5.0); LYMPHOCYTES % (MANUAL) 6 % (16-48); MONOCYTES % (MANUAL) 3 % (0-11.0); NEUTROPHILS % (MANUAL) 75 (42-76)
--- NOTE | 2019-11-26 10:00 | NUR ---
Pain reported 7/10 on left foot. given morphine.
[2019-11-26] MEDS: MORPHINE SULFATE INJ 2 MG/ML DISP.SYRIN IV PRN (10:36)
--- NOTE | 2019-11-26 11:04 | NUR ---
RN OPENING NOTES: Received patient A&O x4, 2liters nasal canula tolerating well, no signs of resp distress, PICC in ZORA patent and flushes well, dressings clean dry and intact, R chest pigtailintact with red drainage, MARINA AV shunt noted. Addendum: 11/26/19 at 1116 by JAIMIE RAMIREZ RN 0730
[2019-11-26] MEDS: HYDROCODONE/APAP 5/325MG TABLET PO PRN (11:10)
--- NOTE | 2019-11-26 11:16 | NUR ---
pain rechecked, rated 10/10, given NORCO.
[2019-11-26] MEDS: CEFTRIAXONE 1 G in IV D5W 50 ML IV SCH (14:15)
[2019-11-26] MEDS ORDERED: PNEUMOCOCCAL 23-VAL P-SAC VAC 0.5 ML VIAL SQ ONE (17:00)
[2019-11-26] MEDS ORDERED: INFLUENZA VACCINE 2020-21 0.5 ML DISP.SYRIN IM ONE (18:00)
--- NOTE | 2019-11-26 18:46 | NUR ---
Pt infused with 1 unit prbc, tolerated well.
[2019-11-26] MEDS ORDERED: GELATIN SPONGE,ABSORBABLE 1 SPONGE SPONGE TP ONE (20:43)
--- NOTE | 2019-11-26 21:10 | NUR ---
2109 NOTED WITH BLEEDING ON BILATERAL FEET DRESSING. LORI CLINE MADE AWARE WITH ORDER TO APPLY SURGIFOAM ON AFFECTED AREAS. ORDER NOTED AND CARRIED OUT.
[2019-11-27] VITALS (8 sets, daily range): BP systolic 104–124; BP diastolic 41–64
[2019-11-27] MEDS: HYDROCODONE/APAP 5/325MG TABLET PO PRN ×2 (03:00→20:21)
[2019-11-27] MEDS: METRONIDAZOLE 500MG/ NS 100ML 500 MG in PREMIX 1 EA IV SCH ×3 (05:14→20:19)
--- NOTE | 2019-11-27 05:30 | NUR ---
RN notes Alert and oriented, speaks hungarian and a little azeri. Resting comfortably in bed, awake with no apparent distress. Breathing even and unlabored. On 2 lpm O2 via nasal cannula tolerating well. No complaint of pain or discomfort. Surgical foam applied to both plantar foot wound, oozing with blood. Needs attended. Kept clean and dry. Will endorse to next shift for continuity of care.
[2019-11-27] MEDS: HYDROCORTISONE SOD SUCCINATE 100 MG/2 ML VIAL IV SCH ×3 (06:22→17:19)
[2019-11-27 07:01] LABS: BASOPHILS % (AUTO) 0.2 % (0.0-2.0); HEMATOCRIT 21 % (39-51); LYMPHOCYTES # (AUTO) 0.1 /CMM (0.8-4.8); LYMPHOCYTES % (AUTO) 0.6 % (20.0-44.0); MEAN CORPUSCULAR HGB CONC 32 g/dl (31.0-36.0); MEAN CORPUSCULAR VOLUME 98 fL (80-96); MONOCYTES # (AUTO) 0.3 /CMM (0.1-1.30); MONOCYTES % (AUTO) 1.6 % (2.0-12.0); NEUTROPHILS # (AUTO) 16.9 /CMM (1.8-8.9); NEUTROPHILS % (AUTO) 97.6 % (43.0-81.0); PLATELET COUNT (AUTO) 144 /CMM (150-450); RED BLOOD CELL COUNT(AUTO) 2.16 MIL/uL (4.5-6.0); WHITE BLOOD COUNT (AUTO) 17.3 K/uL (4.3-11.0)
[2019-11-27 07:14] LABS: HEMOGLOBIN 6.8 g/dL (13.5-17.5)
--- NOTE | 2019-11-27 07:15 | NUR ---
MUTUEL MACHINE OPERATOR OPENING NOTE Received patient awake in bed appears calm and relaxed on NC 2L tolerating well no signs of distress. Patient is AO X4 verbal and able to communicate. Noted with ZORA PICC line flushes well. MARINA AV Shunt and R Chest Pigtail draining light pink fluid. Noted with bilateral feet dressing. Received report for low HGB and increased bleeding of L foot due to debridement. Safety measures reinforced. Call light within reach. Will cont to monitor.
--- NOTE | 2019-11-27 07:16 | NUR ---
RN notes Received call from lab regarding critical lab value for Hgb at 6.8. Endorsed to incoming RN
[2019-11-27 07:24] LABS: CALCIUM, SERUM 7.8 mg/dL (8.5-10.1); CREATININE 6.6 mg/dL (0.6-1.3); MAGNESIUM 2.4 mg/dL (1.8-2.4); PHOSPHORUS 5.6 mg/dL (2.5-4.9); POTASSIUM 4.9 mmol/L (3.5-5.1)
[2019-11-27] MEDS: BLOOD SUGAR DIAGNOSTIC 1 EACH STRIP IN SCH ×4 (07:56→21:31)
[2019-11-27] MEDS: PANTOPRAZOLE 40 MG TABLET.DR PO SCH (07:56)
[2019-11-27] MEDS: SEVELAMER CARBONATE 800 MG TABLET PO SCH ×3 (07:56→17:19)
[2019-11-27] MEDS: INSULIN REGULAR, HUMAN 100 UNIT/ML 3 ML VIAL SQ PRN ×4 (07:57→21:35)
[2019-11-27] MEDS: ASPIRIN EC 81 MG TABLET.DR PO SCH (08:22)
[2019-11-27] MEDS: APIXABAN 2.5 MG TABLET PO SCH ×2 (08:23→16:34)
[2019-11-27] MEDS: GABAPENTIN 100 MG CAPSULE PO SCH ×2 (08:24→16:34)
[2019-11-27] MEDS: SILVER SULFADIAZINE CREAM 25 GM TUBE TP SCH (08:24)
[2019-11-27] MEDS: HYDROGEL DRESSING 90 GM TUBE TP SCH (08:24)
--- NOTE | 2019-11-27 09:00 | NUR ---
ELIQUIS HELD DUE TO ACTIVE BLEEDING ON THE L AND R FOOT. HGB IS CRITICAL 6.8. RECEIVED ORDER TO TRANSFUSE 1 PRBC WITH DIALYSIS.
--- NOTE | 2019-11-27 11:00 | NUR ---
SEEN BY DR. WILSON FOR BILATERAL FOOT.
[2019-11-27] MEDS: IV NS 0.9% 250 ML IV PRN (12:38)
[2019-11-27] MEDS: CEFTRIAXONE 1 G in IV D5W 50 ML IV SCH (14:08)
--- NOTE | 2019-11-27 19:10 | NUR ---
ENDORSED TO PRECISION GRINDER EXTERNAL NURSE FOR ZHANG
--- NOTE | 2019-11-27 19:45 | NUR ---
RN OPENING NOTE RECEIVED PATIENT IN BED RESTING ALERT ORIENTED X4 VERBALLY RESPONSIVE ON 2L/MIN OXYGEN VIA NASAL CANNULA O2:100% IV SITE IS ON LEFT UPPER ARM PICC LINE INTACT PATENT FLUSHED,AV SHUNT FOR DIALYSIS ON RIGHT UPPER ARM, PIGTAIL ON RIGHT CHEST WITH SMALL AMOUNT PINK FLUID,BED LOCKED IN LOW POSITION,CALL LIGHT WITHIN REACH,SIDE RAIL X3UP CONTINUE TO MONITOR
[2019-11-27] MEDS ORDERED: GELATIN SPONGE,ABSORBABLE 1 SPONGE SPONGE TP ONE (22:56)
[2019-11-27] MEDS: MORPHINE SULFATE INJ 2 MG/ML DISP.SYRIN IV PRN (23:56)
[2019-11-28] VITALS: BP 135/53
[2019-11-28] MEDS: METRONIDAZOLE 500MG/ NS 100ML 500 MG in PREMIX 1 EA IV SCH ×3 (04:32→20:18)
--- NOTE | 2019-11-28 07:03 | NUR ---
RN CLOSING NOTE PATIENT REMAINS ON ALERT ORIENTED X4 VERBALLY RESPONSIVE NO SOB NOT ACUTE NOTED ON 2L/MIN OXYGEN VIA NASAL CANNULA O2:100% IV SITE IS ON LEFT UPPER ARM PICC LINE INTACT PATENT FLUSHED,AV SHUNT ON RIGHT UPPER ARM AND RIGHT CHEST PIGTAIL WITH SMALL AMOUNT OF PINK FLUID,ALL DUE MEDS GIVEN MD ORDERED KEPT CLEAN AND DRY ALL THE TIME,SAFETY MEASURE IMPLEMENTED,KEPT CALL LIGHT WITHIN REACH ALL NEED MET ENDORSE NEXT COMING SHIFT FOR CONTINUATION OF CARE.
--- NOTE | 2019-11-28 07:20 | NUR ---
ms rn received on bed, awake,alert,oriented x4,not in any form of distress, respirations even and unlabored,no sob noted, bilateral lower leg wounds,dressing dry and intact, no active bleeding at this time,all needs attended.
[2019-11-28 08:00] VITALS: BP 125/48
[2019-11-28] MEDS: SEVELAMER CARBONATE 800 MG TABLET PO SCH ×3 (08:03→17:18)
[2019-11-28] MEDS: PANTOPRAZOLE 40 MG TABLET.DR PO SCH (08:03)
[2019-11-28] MEDS: BLOOD SUGAR DIAGNOSTIC 1 EACH STRIP IN SCH ×4 (08:03→21:31)
[2019-11-28] MEDS: INSULIN REGULAR, HUMAN 100 UNIT/ML 3 ML VIAL SQ PRN ×4 (08:12→21:35)
[2019-11-28] MEDS: ASPIRIN EC 81 MG TABLET.DR PO SCH (08:58)
[2019-11-28] MEDS: HYDROCORTISONE SOD SUCCINATE 100 MG/2 ML VIAL IV SCH (08:58)
[2019-11-28] MEDS: GABAPENTIN 100 MG CAPSULE PO SCH ×2 (08:58→17:18)
[2019-11-28] MEDS: APIXABAN 2.5 MG TABLET PO SCH ×2 (09:00→17:00)
[2019-11-28] MEDS: AMIODARONE HCL 200 MG TABLET PO SCH (09:00)
--- NOTE | 2019-11-28 09:00 | NUR ---
ms rn breakfast served,due meds given,tolerated well. held eliquis due to wound bleeding.
[2019-11-28 09:18] LABS: BASOPHILS # (AUTO) 0.1 /CMM (0.0-0.2); BASOPHILS % (AUTO) 0.4 % (0.0-2.0); HEMATOCRIT 25 % (39-51); HEMOGLOBIN 8.1 g/dL (13.5-17.5); LYMPHOCYTES # (AUTO) 0.1 /CMM (0.8-4.8); LYMPHOCYTES % (AUTO) 0.8 % (20.0-44.0); MEAN CORPUSCULAR HGB CONC 32 g/dl (31.0-36.0); MEAN CORPUSCULAR VOLUME 95 fL (80-96); MONOCYTES # (AUTO) 0.4 /CMM (0.1-1.30); MONOCYTES % (AUTO) 2.2 % (2.0-12.0); NEUTROPHILS # (AUTO) 15.8 /CMM (1.8-8.9); NEUTROPHILS % (AUTO) 96.6 % (43.0-81.0); PLATELET COUNT (AUTO) 128 /CMM (150-450); RED BLOOD CELL COUNT(AUTO) 2.61 MIL/uL (4.5-6.0); WHITE BLOOD COUNT (AUTO) 16.4 K/uL (4.3-11.0)
[2019-11-28 09:30] LABS: CALCIUM, SERUM 7.8 mg/dL (8.5-10.1); CREATININE 5.4 mg/dL (0.6-1.3); POTASSIUM 4.3 mmol/L (3.5-5.1)
--- NOTE | 2019-11-28 11:00 | NUR ---
ms rn was seen by dr. ochoa w/ plan to removed pleural tube in am.
[2019-11-28] MEDS: SILVER SULFADIAZINE CREAM 25 GM TUBE TP SCH (11:21)
[2019-11-28] MEDS: HYDROGEL DRESSING 90 GM TUBE TP SCH (11:22)
[2019-11-28] MEDS: CEFTRIAXONE 1 G in IV D5W 50 ML IV SCH (15:30)
[2019-11-28 16:00] VITALS: BP 134/56
--- NOTE | 2019-11-28 19:07 | NUR ---
ms rn on bed, no distress noted, no evidence of bleeding of lower left foot.
--- NOTE | 2019-11-28 19:32 | NUR ---
RN CLOSING NOTE RECEIVED PATIENT IN BED RESTING ALERT ORIENTED X4 VERBALLY RESPONSIVE NO SOB NOT ACUTE DISTRESS NOTED PATIENT IS BREATHING EVEN AND NON LABORED ON 2L/MIN OXYGEN VIA NASAL CANNULA,O2:98% IV LINE IS LEFT UPPER ARM PICC LINE PATENT INTACT FLUSHED,AV SHUNT ON RIGHT UPPER ARM FOR DIALYSIS,BRUIT AND THRILL PRESENT, RIGHT CHEST PIGTAIL NO FLUID DRAINING NOTED,IMPLEMENTED SAFETY MEASURE,KEEP CALL LIGHT WITHIN REACH,BED IN LOW POSITION AND LOCKED,CONTINUE TO MONITOR
--- NOTE | 2019-11-28 20:30 | NUR ---
RN NOTE PATIENT HAS NOSE BLEEDING CLEAN AND KEEP DRY CALLED GANG LEADER DR DR. BOYCE WITH NO NEW ORDER AT THIS TIME CONTINUE TO MONITOR.
[2019-11-28] MEDS: MORPHINE SULFATE INJ 2 MG/ML DISP.SYRIN IV PRN (23:12)
[2019-11-29] VITALS: BP 122/47
[2019-11-29] MEDS ORDERED: GELATIN SPONGE,ABSORBABLE 1 SPONGE SPONGE TP ONE (02:07)
--- NOTE | 2019-11-29 03:00 | NUR ---
RN NOTE NO BLEEDING NOSE CONTINUE TO MONITOR.
[2019-11-29] MEDS: METRONIDAZOLE 500MG/ NS 100ML 500 MG in PREMIX 1 EA IV SCH ×4 (04:21→21:00)
--- NOTE | 2019-11-29 06:51 | NUR ---
RN CLOSING NOTE PATIENT REMAINS ALERT ORIENTED X4 VERBALLY RESPONSIVE NO SOB NOT ACUTE DISTRESS NOTED,ON 2L/MIN OXYGEN VIA NASAL CANNULA,O2:100%, IV SITE IS ON LEFT UPPER ARM PICC LINE PATENT INTACT,ALL DUE MEDS GIVEN MD ORDERED KEPT CLEAN AND DRY ALL THE TIME,WOUND TREATMENT DONE,IMPLEMENTED SAFETY MEASURE,KEPT CALL LIGHT WITHIN REACH,ALL NEEDS MET.ENDORSE NEXT COMING SHIFT FOR CONTINUATION OF CARE.
[2019-11-29 06:53] LABS: BASOPHILS # (AUTO) 0.1 /CMM (0.0-0.2); BASOPHILS % (AUTO) 0.7 % (0.0-2.0); EOSINOPHILS % (AUTO) 0.1 % (0.0-6.0); HEMATOCRIT 24 % (39-51); HEMOGLOBIN 7.8 g/dL (13.5-17.5); LYMPHOCYTES # (AUTO) 0.2 /CMM (0.8-4.8); LYMPHOCYTES % (AUTO) 1.4 % (20.0-44.0); MEAN CORPUSCULAR HGB CONC 33 g/dl (31.0-36.0); MEAN CORPUSCULAR VOLUME 96 fL (80-96); MONOCYTES # (AUTO) 0.4 /CMM (0.1-1.30); MONOCYTES % (AUTO) 3.1 % (2.0-12.0); NEUTROPHILS # (AUTO) 13.7 /CMM (1.8-8.9); NEUTROPHILS % (AUTO) 94.7 % (43.0-81.0); PLATELET COUNT (AUTO) 132 /CMM (150-450); RED BLOOD CELL COUNT(AUTO) 2.47 MIL/uL (4.5-6.0); WHITE BLOOD COUNT (AUTO) 14.4 K/uL (4.3-11.0)
[2019-11-29 07:02] LABS: CALCIUM, SERUM 7.8 mg/dL (8.5-10.1); POTASSIUM 4.5 mmol/L (3.5-5.1)
--- NOTE | 2019-11-29 07:45 | NUR ---
PATIENT IN BED RESTING ALERT ORIENTED X4 VERBALLY RESPONSIVE NO SOB NOT ACUTE DISTRESS NOTED PATIENT IS BREATHING EVEN AND NON LABORED ON 2L/MIN OXYGEN VIA NASAL CANNULA, 100% SPO2. IV LINE IS LEFT UPPER ARM PICC LINE PATENT INTACT FLUSHED,AV SHUNT ON RIGHT UPPER ARM FOR DIALYSIS,BRUIT AND THRILL PRESENT, RIGHT CHEST PIGTAIL NO FLUID DRAINING NOTED,IMPLEMENTED SAFETY MEASURE,KEEP CALL LIGHT WITHIN REACH,BED IN LOW POSITION AND LOCKED,CONTINUE TO MONITOR. ALL HOSPITAL POLICY SAFETY PRECAUTIONS IMPLEMENTED.
[2019-11-29 08:00] VITALS: BP 130/69
[2019-11-29] MEDS: PANTOPRAZOLE 40 MG TABLET.DR PO SCH (09:16)
[2019-11-29] MEDS: HYDROCORTISONE SOD SUCCINATE 100 MG/2 ML VIAL IV SCH (09:16)
[2019-11-29] MEDS: ASPIRIN EC 81 MG TABLET.DR PO SCH (09:16)
[2019-11-29] MEDS: GABAPENTIN 100 MG CAPSULE PO SCH ×2 (09:16→17:24)
[2019-11-29] MEDS: SEVELAMER CARBONATE 800 MG TABLET PO SCH ×3 (09:17→17:24)
[2019-11-29] MEDS: AMIODARONE HCL 200 MG TABLET PO SCH (09:17)
[2019-11-29] MEDS: HYDROGEL DRESSING 90 GM TUBE TP SCH (09:17)
[2019-11-29] MEDS: SILVER SULFADIAZINE CREAM 25 GM TUBE TP SCH (09:18)
[2019-11-29] MEDS: BLOOD SUGAR DIAGNOSTIC 1 EACH STRIP IN SCH ×3 (09:21→17:17)
[2019-11-29] MEDS: APIXABAN 2.5 MG TABLET PO SCH ×2 (09:21→17:21)
[2019-11-29] MEDS: INSULIN REGULAR, HUMAN 100 UNIT/ML 3 ML VIAL SQ PRN ×3 (09:21→17:22)
[2019-11-29] MEDS: ONDANSETRON HCL/PF 4 MG/2 ML VIAL IVP PRN (09:40)
--- NOTE | 2019-11-29 10:30 | NUR ---
PIGTAIL CATH REMOVED. ORDERED BY DR GREGORY. PT TOLERATED WELL. NO SIGNS OF BLEEDING OR SOB. RESPIRATIONS EVEN AND UNLABORED. PT DENIES PAIN. WILL MONITOR RESPONSE AND RESPIRATORY STATUS THROUGHOUT THE SHIFT AND REPORT NEEDED. CXR ORDERED BY DR GREGORY TO CONFIRM.
--- NOTE | 2019-11-29 14:31 | NUR ---
COVID RESULT NEGATIVE PER RAMA FROM LAB.
[2019-11-29 16:00] VITALS: BP 143/84
--- NOTE | 2019-11-29 16:30 | NUR ---
PT BEGAN DIALYSIS WITH SLOT SERVICE SPECIALIST.
--- NOTE | 2019-11-29 16:40 | NUR ---
PATIENT REFUSED TO HAVE DISCHARGE PHOTO TAKEN PER PATIENT "I DON'T FEEL GOOD ,"PER PATIENT HE FEELS REALLY TIRED W/ HD AND DOESNT WANT TO BE MOVED AROUND BUT AGREED W/ DISCHARGE VIA AMBULANCE TO SNF.
--- NOTE | 2019-11-29 18:30 | NUR ---
PT ENDED DIALYSIS WITH NO ISSUES. TOLERATED WELL. REPORT FROM TECHNICAL SUPPORT TECHNICIAN PT REMOVED 1500 ML.
[2019-11-29 18:38] LABS: OCCULT BLOOD STOOL POSITIVE (NEGATIVE)
[2019-11-29] MEDS: CEFTRIAXONE 1 G in IV D5W 50 ML IV SCH (18:51)
--- NOTE | 2019-11-29 19:00 | NUR ---
PATIENT IN BED RESTING ALERT ORIENTED X4 VERBALLY RESPONSIVE NO SOB NOT ACUTE DISTRESS NOTED PATIENT IS BREATHING EVEN AND NON LABORED ON 2L/MIN OXYGEN VIA NASAL CANNULA, 100% SPO2. IV LINE IS LEFT UPPER ARM PICC LINE PATENT INTACT FLUSHED,AV SHUNT ON RIGHT UPPER ARM FOR DIALYSIS,BRUIT AND THRILL PRESENT. ALL ORDERS IMPLEMENTED. PT TOLERATING ALL WELL. IMPLEMENTED SAFETY MEASURE,KEEP CALL LIGHT WITHIN REACH,BED IN LOW POSITION AND LOCKED,CONTINUE TO MONITOR. ALL HOSPITAL POLICY SAFETY PRECAUTIONS IMPLEMENTED. AWAITING DC. REPORT GIVEN TO [facility]. WILL ENDORSE TO PM RN FOR CONTINUATION OF CARE.
--- NOTE | 2019-11-29 19:30 | NUR ---
RN OPENING NOTE RECEIVED PATIENT IN BED, AO X4, IN NO S/SX OF ACUTE DISTRESS AT THIS TIME. PATIENT'S BREATHING IS EVEN AND UNLABORED. PATIENT IS ON 2 L OF OXYGEN VIA NC, SATURATING AT 99%, HR IS 64. NOTED ZORA PICC LINE, PATENT AND FLUSHING WELL, AND MARINA AV SHUNT, NO SIGN OF INFECTION NOTED. WOUND DRESSING AT B FOOT DRY AND INTACT. SAFETY MEASURES IMPLEMENTED PER PROTOCOL. PATIENT BED ALARM IS ON. HEAD OF BED ELEVATED. BED IS LOCKED, IN LOWEST POSITION AND SIDE RAILS UP. CALL LIGHT WITHIN REACH OF THE PATIENT. WILL CONTINUE TO MONITOR AND REASSESS FOR ANY CHANGES. AWAITING AMBULANCE SCHEDULED FOR TRANSFER TO [facility] AT 1999.
--- NOTE | 2019-11-29 20:50 | NUR ---
RN NOTE EMT ARRIVED AT UNIT AT 2039. PATIENT ID BAND CONFIRMED WITH TRANSPORTATION TEAM. PATIENT DISCHARGED TO [facility] ROOM 121, CLINICAL LAB ASSISTANT DIANA GILLESPIE WITH PHONE NUMBER [phone]. VERBAL REPORT GIVEN TO KRISTINE. PATIENT A0 X 4, VS TAKEN AND RECORDED, BP 127/70, T 97.9, HR 61, R 20, SATURATION 99%. ALL BELONGINGS CHECKED INFRONT OF PATIENT AND KRISTINE BELONGINGS CHECK LIST SIGNED. PATIENT LEFT WITH 2 EMT PERSONNEL AT 2049 VIA [place] IN STABLE CONDITION. REGIONAL SALES CONSULTANT, AND PATIENT'S NEXT OF KIN, YOVANI MILLS WAS NOTIFIED VIA PHONE CALL AT [phone].
== END 2019-11-29 21:56 | DRG 710 ==
LOC: ER 10:23 → EDBD 11:42 → TELE2 11:42 → ICU 19:28 → TELE1 11-19 16:35 → ICU 11-21 08:40 → TELE1 11-21 08:45 → TELE-TD 11-21 09:59 → MEDSG1 11-22 07:44
PROVIDERS: ADMIT Internal Medicine; ATTEND Nurse Practitioner Acute Care
PROC: B548ZZA Ultrasonography of Superior Vena Cava, Guidance (ICD-10-PCS; principal; 2019-11-13)
PROC: 02HV33Z Insertion of Infusion Device into Superior Vena Cava, Percutaneous Approach (ICD-10-PCS; principal; 2019-11-13)
PROC: 5A1D70Z Performance of Urinary Filtration, Intermittent, Less than 6 Hours Per Day (ICD-10-PCS; 2019-11-13)
PROC: 0W993ZZ Drainage of Right Pleural Cavity, Percutaneous Approach (ICD-10-PCS; 2019-11-14)
PROC: 0JBR0ZZ Excision of Left Foot Subcutaneous Tissue and Fascia, Open Approach (ICD-10-PCS; 2019-11-14)
PROC: 0JBQ0ZZ Excision of Right Foot Subcutaneous Tissue and Fascia, Open Approach (ICD-10-PCS; 2019-11-14)
PROC: 0JB70ZZ Excision of Back Subcutaneous Tissue and Fascia, Open Approach (ICD-10-PCS; 2019-11-16)
PROC: 0B9N30Z Drainage of Right Pleura with Drainage Device, Percutaneous Approach (ICD-10-PCS; 2019-11-20)
PROC: 4A023N7 Measurement of Cardiac Sampling and Pressure, Left Heart, Percutaneous Approach (ICD-10-PCS; 2019-11-21)
PROC: B211YZZ Fluoroscopy of Multiple Coronary Arteries using Other Contrast (ICD-10-PCS; 2019-11-21)
PROC: B41JYZZ Fluoroscopy of Other Lower Arteries using Other Contrast (ICD-10-PCS; 2019-11-21)
PROC: 04QK3ZZ Repair Right Femoral Artery, Percutaneous Approach (ICD-10-PCS; 2019-11-21)
PROC: 30233N1 Transfusion of Nonautologous Red Blood Cells into Peripheral Vein, Percutaneous Approach (ICD-10-PCS; 2019-11-26)
DX: A41.9 Sepsis, unspecified organism (principal); J18.9 Pneumonia, unspecified organism; I12.0 Hypertensive chronic kidney disease with stage 5 chronic kidney disease or end stage renal disease; N18.6 End stage renal disease; Z99.2 Dependence on renal dialysis; E43 Unspecified severe protein-calorie malnutrition; R65.21 Severe sepsis with septic shock; D63.1 Anemia in chronic kidney disease; L89.153 Pressure ulcer of sacral region, stage 3; D69.6 Thrombocytopenia, unspecified; E03.9 Hypothyroidism, unspecified; E87.5 Hyperkalemia; E78.5 Hyperlipidemia, unspecified; I25.10 Atherosclerotic heart disease of native coronary artery without angina pectoris; K21.9 Gastro-esophageal reflux disease without esophagitis; R04.0 Epistaxis; R57.1 Hypovolemic shock; Z79.01 Long term (current) use of anticoagulants; Z86.718 Personal history of other venous thrombosis and embolism; Z95.0 Presence of cardiac pacemaker; E88.09 Other disorders of plasma-protein metabolism, not elsewhere classified; N25.0 Renal osteodystrophy; R00.1 Bradycardia, unspecified; I48.0 Paroxysmal atrial fibrillation; Z68.26 Body mass index [BMI] 26.0-26.9, adult; I27.20 Pulmonary hypertension, unspecified; J98.11 Atelectasis; E11.42 Type 2 diabetes mellitus with diabetic polyneuropathy; E11.51 Type 2 diabetes mellitus with diabetic peripheral angiopathy without gangrene; E11.621 Type 2 diabetes mellitus with foot ulcer; L97.519 Non-pressure chronic ulcer of other part of right foot with unspecified severity; L97.529 Non-pressure chronic ulcer of other part of left foot with unspecified severity; I82.411 Acute embolism and thrombosis of right femoral vein; M06.9 Rheumatoid arthritis, unspecified; E27.40 Unspecified adrenocortical insufficiency; M62.50 Muscle wasting and atrophy, not elsewhere classified, unspecified site; S61.200A Unspecified open wound of right index finger without damage to nail, initial encounter; X58.XXXA Exposure to other specified factors, initial encounter; Y93.9 Activity, unspecified; Y92.89 Other specified places as the place of occurrence of the external cause; E87.2 Acidosis; B19.20 Unspecified viral hepatitis C without hepatic coma; E11.22 Type 2 diabetes mellitus with diabetic chronic kidney disease; J91.8 Pleural effusion in other conditions classified elsewhere
CPT/HCPCS: 36415; 71045-TC; 71250-TC; 75630-TC; 75989; 75989-TC; 80048-TC; 80053-TC; 80061-TC; 80076-TC; 80202-TC; 82272-TC; 82533; 82550-TC; 82728-TC; 82962-TC; 83540-TC; 83605-TC; 83735-TC; 83970; 84100-TC; 84155; 84165; 84439-TC; 84443-TC; 84484-TC; 85025-TC; 85610-TC; 85730-TC; 86706; 86803; 86850-TC; 87040-TC; 87070-TC; 87075-TC; 87081-TC; 87102-TC; 87186-TC; 87340; 87806; 88108-TC; 88305-TC; 88312-TC; 89051-TC; 90732; 90935-TC; 93307-TC; 93970-TC; 94799-TC; 97112-TC; 97530-TC; A4216; A4217; A6248; A6253; A6403; C1751; C1769; C1887; C1894; G0378; G0500; J0696; J1644; J1720; J1815; J2250; J2270; J2310; J2405; J2543; J3010; J3370; J3490; J7030; J7040; J7050; J7060; P9016-BL; Q2036; Q9967; U0003